=== PATIENT | female | born 1965 | race Caucasian/White ===

== ENCOUNTER 2017-07-11 10:49 | Day surgery (SDC) | payer OTHER, SELFPAY ==
[2017-07-07 14:17] VITALS: BMI 108.3
[2017-07-11] VITALS (11 sets, daily range): BP systolic 102–143; BP diastolic 55–87; PULSE 63–84; RESP 14–20; TEMP 36.5–36.7; O2SAT 91–98
--- NOTE | 2017-07-11 13:01 | HMH.PROC ---
[facility] Procedure Note Procedure Note:: Colonoscopy Procedure Report: Colonoscopy with cold snare polypectomy Endoscopist: Fan Pantoja II, MD Referring physician: Enrrique Montano MD Date of Procedure: July 11, 2017 Equipment: Olympus 180 variable stiffness pediatric colonoscope Sedation: Fentanyl 150 mg IV/ Versed 9 mg IV Indication: Mrs. Munoz is a 51-year-old female who is here for follow-up screening/surveillance colonoscopy. Her last colonoscopy was 7 years ago at which time 8 colon polyps were removed. Prior to this, she had a colonoscopy at which time 7 polyps were removed. She does have some lower abdominal discomfort radiating from right to left across the lower abdomen. She reports no rectal bleeding or change in bowel habits. She does state that her maternal grandmother and maternal uncle had colon cancer. Procedure: Prior to the procedure, a history and physical exam was performed, and patient's medications and allergies were reviewed. The risks, benefits and alternatives of the sedation and procedure were discussed with the patient. All questions were answered and informed consent was obtained. The patient was brought to the procedure room. Patient identification and proposed procedure were verified by the physician and the nurse. The patient was placed in a left lateral decubitus position and the scope was passed under direct vision. Throughout the procedure, the patient's blood pressure, pulse, and oxygen saturations were monitored continuously. The colonoscopy was accomplished without difficulty. The patient tolerated the procedure well. Findings: On digital rectal examination there was normal rectal tone. There were no external hemorrhoids. The colonoscope was introduced through the anal canal to the rectum and advanced to the cecum. The ileocecal valve and appendiceal orifice were identified. The scope was advanced a short distance into the ileum which appeared grossly normal. The scope was then withdrawn into the colon. There were 8 colon polyps identified in the ascending ?2, transverse ?3, descending ?1 and sigmoid ?2. These ranged in size from 5-7 mm and were all removed via cold snare polypectomy. There were scattered diverticuli throughout the descending and sigmoid colon (LEFT colon). The rectum itself was normal. Upon retroflexion within the rectum there were grade 1 internal hemorrhoids. Impression: 1. Colonic polyps ?8 2. Left-sided diverticulosis 3. Grade 1 internal hemorrhoids Plan: I will follow up the polyp pathology and recommend repeat colonoscopy again in 3 years based upon the polyp histology and the patient's family history. I would encourage fiber supplementation on a long-term daily maintenance basis.
== END 2017-07-11 14:05 | disposition home or self-care (01) ==
LOC: OUTP 10:52
PROVIDERS: Family Provider Family Medicine; PCP Family Medicine; Visit Provider Internal Medicine Gastroenterology
PROC: 0DJD8ZZ Inspection of Lower Intestinal Tract, Via Natural or Artificial Opening Endoscopic (ICD-10-PCS; CPT 45378; principal; 2017-07-11 12:00)
DX: Z12.11 Encounter for screening for malignant neoplasm of colon (principal); Z86.010 Personal history of colon polyps; K63.5 Polyp of colon; K57.30 Diverticulosis of large intestine without perforation or abscess without bleeding; K64.0 First degree hemorrhoids
CPT/HCPCS: 45380; 99152; 99153

== ENCOUNTER → 2017-09-15 10:30 | Outpatient (CLI) | payer OTHER, SELFPAY ==
--- NOTE | 2017-09-15 10:50 | XR_ITS ---
XR chest 2V HISTORY: ITS.REASON: NICOTINE DEPENENCE ORDERING PHYSICIAN: Gerry Brunner MD PATIENT AGE: 51 years COMPARISON: 03/21/2017 FINDINGS: The cardiomediastinal silhouette and pulmonary vascularity are within normal limits. The lungs are clear without infiltrates, suspicious nodules, or pleural effusions. No acute bony abnormalities. IMPRESSION: Negative chest, no acute finding
[2017-09-15 11:09] LABS: Basophils % 0.3 % (0.1-2.0); Eosinophils # 0.1 K/mm3 (0.0-0.4); Eosinophils % 1.4 % (0.1-12.0); Hematocrit 45.3 % (37.0-47.0); Hemoglobin 14.1 g/dL (12.2-16.2); Lymphocytes # 1.6 K/mm3 (0.7-4.5); Lymphocytes % 18.5 K/mm3 (10-50); Mean Corpuscular HGB Conc 31.1 g/dL (31.8-35.4); Mean Corpuscular Hemoglobin 29.9 pg (27.0-31.2); Mean Corpuscular Volume 96.1 fl (81-99); Mean Platelet Volume 8.3 fl (7.4-10.4); Monocytes # 0.4 K/mm3 (0.1-1.0); Monocytes % 4.5 % (1.7-9.3); Neutrophils # 6.3 K/mm3 (1.8-7.8); Neutrophils % 75.3 % (37.0-80.0); Platelet Count 226 K/mm3 (142-424); Red Blood Count 4.71 M/mm3 (4.20-5.40); Red Cell Distribution Width 13.6 % (11.5-17.5); White Blood Count 8.4 K/mm3 (4.8-10.8)
[2017-09-15 11:42] LABS: Anion Gap 15.3 mEq/L (5-15); Blood Urea Nitrogen 15 mg/dL (7-18); Carbon Dioxide 25 mmol/L (21.0-32.0); Chloride 106 mmol/L (98-107); Estimated Glomerular Filt Rate 106 ml/min (>60); GFR (African American) 128 ML/MIN (>60); Glucose 108 mg/dL (74-106); Potassium 4.3 mmoL/L (3.5-5.1); Sodium 142 mmol/L (136-145)
== END ==
PROVIDERS: Visit Provider Orthopaedic Surgery
DX: Z01.818 Encounter for other preprocedural examination (principal); S52.502A Unspecified fracture of the lower end of left radius, initial encounter for closed fracture
CPT/HCPCS: 36415; 71046; 80048; 85025; 93005

== ENCOUNTER → 2017-10-04 09:58 | Outpatient (CLI) | payer OTHER, SELFPAY ==
--- NOTE | 2017-10-04 10:23 | XR_ITS ---
XR wrist LT min 3V HISTORY follow-up ORIF/fracture ITS.REASON: LEFT WRIST POST OP ORDERING PHYSICIAN: Gerry Brunner MD PATIENT AGE: 52 years COMPARISON: 09/19/2017 FINDINGS: Bone plate remains in place along the anterior aspect of the distal radius stabilizing the comminuted radial fracture which is in good alignment. Fracture margins are somewhat less distinct which may be due to early healing. There remains good alignment. There is one small fragment along the posterior distal aspect of the fracture displaced dorsally x 2 mm. IMPRESSION: Healing distal radial fracture status post ORIF
== END ==
PROVIDERS: PCP Family Medicine; Visit Provider Orthopaedic Surgery
DX: S52.102A Unspecified fracture of upper end of left radius, initial encounter for closed fracture (principal)
CPT/HCPCS: 73110

== ENCOUNTER → 2017-10-21 10:09 | Outpatient (CLI) | payer OTHER, SELFPAY ==
--- NOTE | 2017-10-21 10:11 | XR_ITS ---
XR wrist LT min 3V HISTORY follow-up fracture/ORIF ITS.REASON: S/P LEFT WRIST ORIF ORDERING PHYSICIAN: Gerry Brunner MD PATIENT AGE: 52 years Comparison: 10/04/2017 FINDINGS: Volar bone plate remains in place stabilizing comminuted distal radial fracture with intra-articular component. Fracture line is still visible and does not appear significantly changed. No significant displacement. Mild anterior angulation of the distal fracture fragment. Splint remains in place IMPRESSION: Overall no change status post ORIF distal radial fracture with good alignment
== END ==
PROVIDERS: PCP Family Medicine; Visit Provider Orthopaedic Surgery
DX: S62.102A Fracture of unspecified carpal bone, left wrist, initial encounter for closed fracture (principal)
CPT/HCPCS: 73110

== ENCOUNTER → 2017-10-27 13:25 | Outpatient (CLI) | payer OTHER, SELFPAY ==
--- NOTE | 2017-10-27 13:26 | XR_ITS ---
XR wrist LT min 3V HISTORY follow-up fracture ITS.REASON: S/P LEFT WRIST ORIF ORDERING PHYSICIAN: Gerry Brunner MD PATIENT AGE: 52 years Comparison: 6 05/30/2012 FINDINGS: Volar bone plate remains in place stabilizing comminuted distal radial fracture with intra-articular component. Fracture line is still visible and does not appear significantly changed. No significant displacement. Mild anterior angulation of the distal fracture fragment. Splint remains in place. There is mild prominence of the scapholunate joint space which may indicate ligamentous injury. IMPRESSION: Overall no change status post ORIF distal radial fracture with good alignment Possible scapholunate ligamentous injury
== END ==
PROVIDERS: PCP Family Medicine; Visit Provider Orthopaedic Surgery
DX: S52.502A Unspecified fracture of the lower end of left radius, initial encounter for closed fracture (principal)
CPT/HCPCS: 73110

== ENCOUNTER → 2017-11-03 13:52 | Outpatient (CLI) | payer OTHER, SELFPAY ==
--- NOTE | 2017-11-03 13:55 | XR_ITS ---
XR wrist LT min 3V HISTORY follow-up fracture ITS.REASON: follow up/ patient heard pop ORDERING PHYSICIAN: Gerry Brunner MD PATIENT AGE: 52 years Comparison: 10/27/2017 FINDINGS: Bohler bone plate remains in place stabilizing comminuted distal radial fracture with intra-articular extension overall not significant changed. There remains good alignment of the fracture fragments. IMPRESSION: Overall no change good alignment status post ORIF comminuted nondisplaced distal radial fracture
== END ==
PROVIDERS: PCP Family Medicine; Visit Provider Orthopaedic Surgery
DX: S52.502A Unspecified fracture of the lower end of left radius, initial encounter for closed fracture (principal)
CPT/HCPCS: 73110

== ENCOUNTER → 2017-11-16 12:52 | Outpatient (CLI) | payer OTHER, SELFPAY ==
--- NOTE | 2017-11-16 13:00 | XR_ITS ---
XR wrist LT min 3V HISTORY follow-up fracture ITS.REASON: S/P LEFT WRIST ORIF ORDERING PHYSICIAN: Gerry Brunner MD PATIENT AGE: 52 years Comparison: 11/03/2017 FINDINGS: Status post ORIF comminuted distal radial fracture. A volar bone plate remains in place with good alignment of the fracture fragments. IMPRESSION: Good alignment distal radial fracture status post ORIF unchanged
== END ==
PROVIDERS: PCP Family Medicine; Visit Provider Orthopaedic Surgery
DX: Z47.89 Encounter for other orthopedic aftercare (principal)
CPT/HCPCS: 73110

== ENCOUNTER → 2018-01-17 13:22 | Outpatient (CLI) | payer OTHER, SELFPAY ==
--- NOTE | 2018-01-17 13:25 | XR_ITS ---
XR wrist LT min 3V HISTORY follow-up fracture/ORIF ITS.REASON: S/P LEFT WRIST ORIF ORDERING PHYSICIAN: Gerry Brunner MD PATIENT AGE: 52 years Comparison: 11/16/2017 FINDINGS: Status post ORIF with anterior bone plate along the distal radius stabilizing distal radial fracture with fracture line appears somewhat less apparent compared to the previous exam consistent with healing. There is good alignment. There is generalized osteopenia of the wrist. IMPRESSION: Status post ORIF distal radius with healing fracture
== END ==
PROVIDERS: PCP Family Medicine; Visit Provider Orthopaedic Surgery
DX: Z98.890 Other specified postprocedural states (principal); S62.102A Fracture of unspecified carpal bone, left wrist, initial encounter for closed fracture
CPT/HCPCS: 73110

== ENCOUNTER → 2019-02-08 16:03 | Outpatient (CLI) | payer OTHER, SELFPAY ==
--- NOTE | 2019-02-08 16:07 | MM_ITS ---
PROCEDURE: MM DIG SCREENING MAMM BI W/CAD CLINICAL INDICATION: SCREENING There is a history of breast cancer in patient's maternal aunt and maternal grandmother COMPARISON: DMDBAV DIG MAMM-DX JASON W ADD VIEWS from 07/23/2014 DMSB DIG MAMM-SCREEN JASON from 10/02/2015 DMSB DIG MAMM-SCREEN JASON W/CAD from 12/02/2016 TECHNIQUE: Standard CC and MLO images were obtained. R2 CAD reviewed. FINDINGS: Moderate diffuse scattered fibroglandular densities are seen in both breasts there is a stable small benign-appearing nodular density adjacent to the nipple left breast. There is no new or suspicious lesion in either breast and no suspicious microcalcifications. IMPRESSION: Fibrofatty parenchyma with no suspicious lesions seen BI-RAD Category: 2 Benign Finding(s) FOLLOW-UP: 1YR 1 Year Follow-up (A letter has been sent to the patient regarding results of the study.) Dictated by: Dr. Ramsey Davenport MD 02/09/2019 10:[address] Ramsey Davenport MD in [place] 02/09/2019 10:57
== END ==
PROVIDERS: PCP Family Medicine; Visit Provider Family Medicine
DX: Z12.31 Encounter for screening mammogram for malignant neoplasm of breast (principal)
CPT/HCPCS: 77067

== ENCOUNTER → 2019-04-17 09:40 | Outpatient (CLI) | payer OTHER, SELFPAY ==
--- NOTE | 2019-04-17 09:41 | US_ITS ---
PROCEDURE: US THYROID CLINICAL INDICATION: hypothy Difficulty swallowing feels like something stuck in throat COMPARISON: No exams were available for comparison FINDINGS: Right lobe: 5 x 1.3 x 1.8 cm 6 x 5 mm isoechoic nodule mid polar region. Well-circumscribed solid-appearing. 1.4 by 1.4 x 1 cm mixed cystic and solid nodule lower pole well-circumscribed wider than tall without obvious calcification. T rads level 2 not suspicious. Left lobe: Prior left-sided lobectomy Isthmus: Additional findings: Unremarkable IMPRESSION: Prior left thyroidectomy. 14 mm lower pole nodule on right T rads level 2. Suggest 6 month follow-up to confirm stability Dictated by: Bao Daniel MD 04/17/2019 19:41 Electronically signed by Bao Daniel MD in [place] 04/17/2019 19:41
--- NOTE | 2019-04-17 09:41 | FL_ITS ---
PROCEDURE: FL BARIUM SWALLOW CLINICAL INDICATION: dysphagia Thyroid nodule COMPARISON: US THYROID from 04/17/2019 TECHNIQUE: In the upright position the patient was observed to swallow barium in both the AP and lateral view. The cervical esophagus was examined under fluoroscopy with images obtained. The patient was then placed prone in the right anterior oblique position and was observed to swallow barium with Valsalva technique . FLUOROSCOPY TIME: 44 seconds FINDINGS: There was no evidence of aspiration. There was normal peristalsis. No filling defects or mucosal abnormalities. No masses or strictures. There is no evidence displacement the esophagus. No external compression evident. No evidence of hiatal hernia. Normal peristalsis IMPRESSION: Negative barium swallow. Dictated by: Bao Daniel MD 04/17/2019 16:06 Electronically signed by Bao Daniel MD in [place] 04/17/2019 16:06
== END ==
PROVIDERS: PCP Family Medicine; Visit Provider Otolaryngology
DX: R13.10 Dysphagia, unspecified (principal); Z90.09 Acquired absence of other part of head and neck
CPT/HCPCS: 74220; 76536

== ENCOUNTER → 2019-04-23 13:29 | Outpatient (CLI) | payer OTHER, SELFPAY ==
[2019-04-23 14:48] LABS: Free T4 (Free Thyroxine) 0.84 ng/dl (0.76-1.46); Thyroid Stimulating Hormone 3.55 uIU/ml (0.358-3.740)
== END ==
PROVIDERS: PCP Family Medicine; Visit Provider Otolaryngology
DX: R13.10 Dysphagia, unspecified (principal); Z90.09 Acquired absence of other part of head and neck
CPT/HCPCS: 36415; 84439; 84443

== ENCOUNTER → 2019-10-30 13:22 | Outpatient (CLI) | payer OTHER, SELFPAY ==
--- NOTE | 2019-10-30 13:23 | US_ITS ---
PROCEDURE: US THYROID CLINICAL INDICATION: thyroid Post left thyroid lobectomy, follow-up right lobe nodules COMPARISON: US THYROID from 04/17/2019 FINDINGS: Right lobe: The right lobe measures 1.6 x 4.6 x 2.2 cm. There is an isoechoic nodule upper pole measuring 0.6 x 0.3 by 0.7 cm with a tiny cystic component representing the only change from the previous study. Again noted is a complex cystic and solid nodule lower pole measuring 1.7 x 1 point by 1.6 cm wider than tall and showing no definite calcifications. This is basically stable and remains a Ti- rads 2 Left lobe: Surgically removed Isthmus: Unremarkable Additional findings: IMPRESSION: Basically stable small isoechoic nodule superior pole and stable complex cystic and solid nodule lower pole Ti-rads 2 Dictated by: Dr. Ramsey Davenport MD 10/30/2019 14:[address] Ramsey Davenport MD in [place] 10/30/2019 14:09
== END ==
PROVIDERS: PCP Family Medicine; Visit Provider Otolaryngology
DX: E03.9 Hypothyroidism, unspecified (principal); E04.1 Nontoxic single thyroid nodule
CPT/HCPCS: 76536

== ENCOUNTER → 2019-10-30 13:53 | Outpatient (CLI) | payer OTHER, SELFPAY ==
[2019-10-30 16:02] LABS: Free T4 (Free Thyroxine) 1.01 ng/dl (0.78-2.19)
[2019-10-30 16:18] LABS: Thyroid Stimulating Hormone 2.79 uIU/mL (0.465-4.68)
== END ==
PROVIDERS: Visit Provider Otolaryngology
DX: E03.9 Hypothyroidism, unspecified (principal); E04.1 Nontoxic single thyroid nodule
CPT/HCPCS: 36415; 84439; 84443

== ENCOUNTER → 2019-11-20 10:57 | Outpatient (CLI) | payer OTHER, SELFPAY ==
--- NOTE | 2019-11-20 10:59 | CT_ITS ---
PROCEDURE: CT SINUS WO CON CLINICAL HISTORY: sinusitis COMPARISON: No exams were available for comparison TECHNIQUE: Axial images obtained with sagittal and coronal reformats. All CT scans at the facility use one or more dose reduction, viz: automated exposure control, ma/kV adjustment per patient size (including targeted exams where dose is matched to indication, i.e. head), or iterative reconstruction technique. FINDINGS: The frontal and sphenoid sinuses have an unremarkable appearance. There is some minimal mucosal thickening along the inferior wall of left maxillary sinus. No sinus air-fluid levels are evident. There is minimal rightward nasal septal deviation. The ostiomeatal units are patent. Minimal mucosal thickening noted of the ethmoid sinuses on the left. The TMJs have an unremarkable appearance. No mastoid effusion. Unremarkable appearing orbits IMPRESSION: Minimal mucosal thickening of the ethmoid sinuses and left maxillary sinus with minimal rightward nasal septal deviation otherwise negative Dictated by: Bao Daniel MD 11/22/2019 09:16 Electronically signed by Bao Daniel MD in [place] 11/22/2019 09:16
== END ==
PROVIDERS: PCP Family Medicine; Visit Provider Otolaryngology
DX: J30.9 Allergic rhinitis, unspecified (principal)
CPT/HCPCS: 70486

== ENCOUNTER → 2020-02-07 10:02 | Outpatient (CLI) | payer OTHER, SELFPAY ==
--- NOTE | 2020-02-07 10:05 | MR_ITS ---
PROCEDURE: MR HEAD/BRAIN WO/W CON CLINICAL INDICATION: FREQUENT FALLS PT. C/O HX OF FREQUENT FALLS FOR THE PAST 2 YEARS. PT ALSO C/O H/A OVER RT EYE AND BACK OR NECK. COMPARISON: No exams were available for comparison TECHNIQUE: Routine multiplanar multi echo sequences are performed without and with gadolinium enhancement. FINDINGS: No midline shift, mass effect, intracranial hemorrhage, or hydrocephalus is evident. No evidence of acute infarction. The cerebellopontine angle, cerebellum, and brainstem have an unremarkable appearance. No enhancing lesions. There are only a few periventricular subcortical T2 white matter hyperintensities which are nonspecific. The pituitary, optic chiasm, corpus callosum, and craniocervical junction have an unremarkable appearance. No mastoid effusion or sinus air-fluid level IMPRESSION: No acute intracranial findings. There are sparse T2 white matter hyperintensities which are nonspecific and may be related to small ischemic gliotic foci. Dictated by: Bao Daniel MD 02/08/2020 13:05 Bao Daniel MD in [place] 02/08/2020 13:05
== END ==
PROVIDERS: PCP Family Medicine; Visit Provider Nurse Practitioner
DX: R29.6 Repeated falls (principal)
CPT/HCPCS: 70553; A9576

== ENCOUNTER → 2020-02-26 10:49 | Outpatient (CLI) | payer OTHER, SELFPAY ==
--- NOTE | 2020-02-26 10:52 | US_ITS ---
PROCEDURE: US THYROID CLINICAL INDICATION: NON TOXIC SINGLE THY NODULE Follow-up thyroid nodule COMPARISON: US US THYROID from 04/17/2019 US US THYROID from 10/30/2019 FINDINGS: The right lobe is 4.4 x 2.2 x 1.5 cm. There has been a prior left thyroidectomy. There is a 6 by 4 mm nodule in the upper pole which has components that are isoechoic and hypoechoic unchanged. A cyst is present in the upper pole at 3 mm. In the lower pole there is a complex nodule which measures 1.7 x 1.1 cm having both cystic and solid components not significantly changed. IMPRESSION: No change in the dominant right-sided thyroid nodule with other smaller nodules also noted unchanged. Prior left thyroidectomy. Dictated by: Bao Daniel MD 02/26/2020 14:46 Bao Daniel MD in [place] 02/26/2020 14:46
[2020-02-26 11:20] LABS: MANUAL DIFFERENTIAL MANUAL DIFFERENTIAL (MANUAL DIFF)
[2020-02-26 11:33] LABS: Basophils % 0.6 % (0.1-2.0); Eosinophils # 0.1 K/mm3 (0.0-0.4); Hematocrit 47.1 % (37.0-47.0); Hemoglobin 14.5 g/dL (12.2-16.2); Lymphocytes # 1.8 K/mm3 (0.7-4.5); Lymphocytes % 29.8 % (10-50); Mean Corpuscular HGB Conc 30.9 g/dL (31.8-35.4); Mean Corpuscular Hemoglobin 29.9 pg (27.0-31.2); Mean Corpuscular Volume 96.8 fl (81-99); Mean Platelet Volume 7.7 fl (7.4-10.4); Monocytes # 0.4 K/mm3 (0.1-1.0); Monocytes % 6.6 % (1.7-9.3); Neutrophils # 3.6 K/mm3 (1.8-7.8); Neutrophils % 60.9 % (37.0-80.0); Platelet Count 258 K/mm3 (142-424); Red Blood Count 4.87 M/mm3 (4.20-5.40); Red Cell Distribution Width 13.2 % (11.5-17.5)
[2020-02-26 13:29] LABS: Eosinophils % 3 % (0-3); Lymphocytes % 28 % (10-50); Monocytes % 5 % (2-9); Neutrophils % 64 % (42-76); Platelet Estimate Normal; RBC Morphology Normal; Total Cells Counted 100
[2020-02-26 13:41] LABS: Thyroid Stimulating Hormone 3.21 uIU/mL (0.465-4.68)
== END ==
PROVIDERS: PCP Family Medicine; Visit Provider Otolaryngology
DX: E04.1 Nontoxic single thyroid nodule (principal)
CPT/HCPCS: 36415; 76536; 84439; 84443; 85007; 85014; 85018; 85048; 85049

== ENCOUNTER → 2020-02-26 11:18 | Outpatient (CLI) | payer OTHER, SELFPAY | PROVIDERS: Visit Provider Otolaryngology | DX: E04.1 Nontoxic single thyroid nodule (principal) | CPT/HCPCS: 36415; 84439; 84443; 85007; 85014; 85018; 85048; 85049 ==

== ENCOUNTER → 2020-03-19 12:25 | Outpatient (CLI) | payer OTHER, SELFPAY ==
[2020-03-19 14:19] LABS: Basophils % 0.6 % (0.1-2.0); Eosinophils # 0.1 K/mm3 (0.0-0.4); Eosinophils % 2.1 % (0.1-12.0); Hematocrit 44.6 % (37.0-47.0); Hemoglobin 14.4 g/dL (12.2-16.2); Lymphocytes # 1.9 K/mm3 (0.7-4.5); Lymphocytes % 31.7 % (10-50); Mean Corpuscular HGB Conc 32.2 g/dL (31.8-35.4); Mean Corpuscular Hemoglobin 30.5 pg (27.0-31.2); Mean Corpuscular Volume 94.5 fl (81-99); Mean Platelet Volume 8.3 fl (7.4-10.4); Monocytes # 0.3 K/mm3 (0.1-1.0); Monocytes % 4.5 % (1.7-9.3); Neutrophils # 3.6 K/mm3 (1.8-7.8); Neutrophils % 61.1 % (37.0-80.0); Platelet Count 243 K/mm3 (142-424); Red Blood Count 4.72 M/mm3 (4.20-5.40); Red Cell Distribution Width 13.9 % (11.5-17.5); White Blood Count 5.9 K/mm3 (4.8-10.8)
[2020-03-19 15:14] LABS: Strep Scrn Group A (Rapid) Negative (Negative)
[2020-03-19 19:44] LABS: Covid-19 Nasal PCR Sendout Lex NOT DETECTED
== END ==
PROVIDERS: PCP Nurse Practitioner; Visit Provider Nurse Practitioner
DX: Z03.818 Encounter for observation for suspected exposure to other biological agents ruled out (principal)
CPT/HCPCS: 36415; 85025; 87430; U0004

== ENCOUNTER → 2020-04-14 15:58 | Outpatient (CLI) | payer OTHER, SELFPAY ==
--- NOTE | 2020-04-14 16:01 | MM_ITS ---
PROCEDURE: MM DIG SCREENING MAMM BI W/CAD Digital Breast Tomosynthesis Included CLINICAL INDICATION: SCREENING Breast cancer patient's maternal aunt and maternal grandmother. There has been a previous biopsy left breast for benign disease. COMPARISON: MG DMSB DIG MAMM-SCREEN JASON from 10/02/2015 MG DMSB DIG MAMM-SCREEN JASON W/CAD from 12/02/2016 MG MM DIG SCREENING MAMM BI W/CAD from 02/08/2019 TECHNIQUE: Standard CC and MLO images and 3D Tomosynthesis was obtained. R2 CAD reviewed. FINDINGS: Moderate scattered fibroglandular densities are seen throughout both breasts. The findings are fairly symmetrical bilaterally. There are a couple of benign-appearing microcalcifications left breast. There is a stable benign-appearing nodular density adjacent to the nipple left breast. There is no suspicious lesion and no suspicious microcalcifications. IMPRESSION: Moderate breast density with no suspicious lesions seen BI-RAD Category: 2 Benign Finding(s) FOLLOW-UP: 1YR 1 Year Follow-up (A letter has been sent to the patient regarding results of the study.) Dictated by: Dr. Ramsey Davenport MD 04/18/2020 14:34 Dr. Ramsey Davenport MD in [place] 04/18/2020 14:34
== END ==
PROVIDERS: PCP Family Medicine; Visit Provider Family Medicine
DX: Z12.31 Encounter for screening mammogram for malignant neoplasm of breast (principal)
CPT/HCPCS: 77063; 77067

== ENCOUNTER → 2020-07-23 16:27 | Outpatient (CLI) | payer OTHER, SELFPAY ==
--- NOTE | 2020-07-23 16:36 | XR_ITS ---
PROCEDURE: XR HAND RT MIN 3V CLINICAL INDICATION: right hand pain COMPARISON: No exams were available for comparison FINDINGS: No fracture or dislocation. No lytic or blastic change. There is normal mineralization. The joint spaces are well-preserved. No significant degenerative/arthritic changes. No erosive changes evident. Other findings:None. IMPRESSION: No acute findings. Dictated by: Bao Daniel MD 07/23/2020 16:45 Bao Daniel MD in [place] 07/23/2020 16:45
== END ==
PROVIDERS: PCP Family Medicine; Visit Provider Family Medicine
DX: M79.641 Pain in right hand (principal)
CPT/HCPCS: 73130

== ENCOUNTER 2020-08-12 15:10 | Outpatient (RCR) | payer OTHER, SELFPAY | END 2020-08-12 16:00 | disposition home or self-care (01) | LOC: OT 15:10 | PROVIDERS: Visit Provider Orthopaedic Surgery | DX: G56.01 Carpal tunnel syndrome, right upper limb (principal) | CPT/HCPCS: 97763 ==

== ENCOUNTER → 2020-09-08 13:40 | Outpatient (CLI) | payer OTHER, SELFPAY ==
--- NOTE | 2020-09-08 13:40 | US_ITS ---
PROCEDURE: US THYROID CLINICAL INDICATION: hx goiter COMPARISON: US US THYROID from 02/26/2020 FINDINGS: Right lobe: 5 x 1.8 x 1.9 cm. Multiple nodules are present including isoechoic nodule in the upper pole at 8 mm, 4 mm cyst in the mid polar region, complex cystic and solid nodule in the lower pole 18 mm overall not significantly changed. Left lobe: Prior left thyroidectomy Isthmus: Additional findings: IMPRESSION: No change right-sided thyroid nodules Dictated by: Bao Daniel MD 09/08/2020 18:53 Bao Daniel MD in [place] 09/08/2020 18:53
[2020-09-08 15:23] LABS: Free T4 (Free Thyroxine) 1.13 ng/dl (0.78-2.19)
== END ==
PROVIDERS: PCP Family Medicine; Visit Provider Otolaryngology
DX: E01.0 Iodine-deficiency related diffuse (endemic) goiter (principal); E04.9 Nontoxic goiter, unspecified
CPT/HCPCS: 36415; 76536; 84439; 84443

== ENCOUNTER → 2020-12-02 10:41 | Outpatient (CLI) | payer OTHER, SELFPAY ==
--- NOTE | 2020-12-02 11:02 | XR_ITS ---
PROCEDURE: XR CHEST 2V CLINICAL HISTORY: surgery 12/04/20; smoker COMPARISON: CR CXR CHEST(2 VIEWS-NOT PORTABLE) from 07/19/2015 CR CXR CHEST(2 VIEWS-NOT PORTABLE) from 03/21/2017 CR CXR2V XR chest 2V from 09/15/2017 FINDINGS: The cardiomediastinal silhouette and pulmonary vascularity are within normal limits. The lungs are clear without infiltrates, suspicious nodules, or pleural effusions. Calcified granuloma left lower lobe. No acute bony findings. IMPRESSION: No acute findings. Dictated by: Bao Daniel MD 12/02/2020 11:15 Bao Daniel MD in [place] 12/02/2020 11:15
--- NOTE | 2020-12-02 11:20 | ECG_ITS ---
APPROVED REPORT Exam: Resting ECG HR:72 bpm ECG Measurements Heart Rate 72 AXES HI 140 P 74 QRSd 72 QRS 67 QT 394 T 69 QTc 431 Conclusion Normal sinus rhythm Low voltage QRS Borderline ECG Electronically signed by : Shaheed Restrepo, 12/03/2020 21:38:10
[2020-12-02 11:34] LABS: Chloride 108 mmol/L (98-107); Potassium 4.8 mmoL/L (3.5-5.1); Sodium 141 mmol/L (136-145)
[2020-12-02 11:36] LABS: Basophils # 0.1 K/mm3 (0-0.2); Basophils % 0.9 % (0.1-2.0); Eosinophils # 0.1 K/mm3 (0.0-0.4); Eosinophils % 2.3 % (0.1-12.0); Hematocrit 43.5 % (37.0-47.0); Hemoglobin 14.1 g/dL (12.2-16.2); Lymphocytes # 1.8 K/mm3 (0.7-4.5); Lymphocytes % 28.2 % (10-50); Mean Corpuscular HGB Conc 32.5 g/dL (31.8-35.4); Mean Corpuscular Hemoglobin 30.1 pg (27.0-31.2); Mean Corpuscular Volume 92.7 fl (81-99); Mean Platelet Volume 8.5 fl (7.4-10.4); Monocytes # 0.3 K/mm3 (0.1-1.0); Monocytes % 4.3 % (1.7-9.3); Neutrophils % 64.3 % (37.0-80.0); Platelet Count 237 K/mm3 (142-424); Red Blood Count 4.69 M/mm3 (4.20-5.40); Red Cell Distribution Width 13.7 % (11.5-17.5); White Blood Count 6.2 K/mm3 (4.8-10.8)
[2020-12-02 11:37] LABS: Alanine Aminotransferase 14 U/L (12-78); Albumin/Globulin Ratio 1.6 (1.1-1.8); Alkaline Phosphatase 69 U/L (38-126); Anion Gap 9.8 mEq/L (5-15); Aspartate Amino Transferase 22 U/L (14-36); Bilirubin,Total 0.5 mg/dl (0.2-1.3); Blood Urea Nitrogen 12 mg/dl (7-17); Carbon Dioxide 28 mmol/L (22.0-30.0); Estimated Glomerular Filt Rate 87 ml/min (>60); GFR (African American) 106 ML/MIN (>60); Globulin 2.5 g/dL (1.3-3.2); Total Protein,Serum 6.5 g/dl (6.3-8.2)
[2020-12-02 11:38] LABS: Calcium 8.7 mg/dl (8.4-10.2); Glucose 95 mg/dl (74-100)
== END ==
PROVIDERS: Visit Provider Orthopaedic Surgery
DX: Z01.818 Encounter for other preprocedural examination (principal); Z11.52 Encounter for screening for COVID-19; M65.331 Trigger finger, right middle finger
CPT/HCPCS: 36415; 71046; 80053; 85025; 93005; U0003

== ENCOUNTER 2020-12-04 11:20 | Day surgery (SDC) | payer OTHER, SELFPAY ==
[2020-12-02 13:23] VITALS: BMI 43.6
[2020-12-04 11:54] VITALS: BP 114/66; PULSE 75; RESP 18; TEMP 36.2; O2SAT 96
[2020-12-04 14:10] VITALS: BP 130/75; PULSE 78; RESP 16; TEMP 36.4; O2SAT 92
--- NOTE | 2020-12-04 14:14 | P.PN_ITS ---
[facility] Anesthesia Checklist - Structural Data Admitted From: Home Planned Operative Procedure/s: r 3rd trigger finger release Consent for Planned Operative Procedure(s) Verified: Yes - Additional verifications Anesthesia Reactions: No Hx Blood Transfusions: No Blood Transfusion Reaction: No - Airway Assessment C-Spine Mobility Assessed: Yes TMJ Mobility Assessed: Yes Dentition: Good Dentition - Neurological Assessment Level of Consciousness: Awake, Alert, Appropriate - Anesthesia Plan Anesthesia Risk discussed: Yes Anesthesia Plan: Verified ASA Class: II Anesthesia Type: MAC [facility] History I have reviewed the patient's past medical history: Yes Medical History: Reports:: Heart Murmur, Lung Disease Denies:: Cancer, Diabetes Mellitus Type 1, Diabetes Mellitus Type 2, Internal Pacemaker, MRSA, Seizures *Have you ever received a pneumonia vaccine?: No *Have you received a flu vaccine this season?: No Other Medical History: Denies: Blood Transfusion Reaction Anesthesia experience/problems:: none Laterality Cases: Left: Breast Biopsy, Other Other Surgeries: Yes: Colonoscopy, Hysterectomy-Total, Thyroidectomy, Tubal Lig ation, Other. No: Pacemaker Amputation: No Fractures: Yes (left wrist) - *Social History Last grade of school completed: Some college Smoking Status: Current every day smoker Tobacco Type: cigarettes # Packs/Day (cigarettes): 1 Alcohol Intake: never Alcohol Intake Frequency:: other Substance Use Type: denies use *Occupational Status:: employed Housing: house Household Members: significant other *Travel in the last 8 weeks: None Family Hx:: Cancer, Diabetes
[2020-12-04 14:25] VITALS: BP 132/69; PULSE 78; RESP 16; O2SAT 96
[2020-12-04 14:40] VITALS: BP 151/82; PULSE 65; RESP 16; O2SAT 96
--- NOTE | 2020-12-04 14:56 | HMH.OPNOTE ---
Date of procedure: 12/04/20 Pre-op Diagnosis:: Recurrent trigger finger, right middle finger Post-op Diagnosis:: Same Procedure performed:: Trigger finger release, left middle finger Surgeon:: Jamie Allen MD ARBORICULTURIST:: Iain Carrillo Anesthesia: MAC Estimated blood loss (mL): 1 Clinical Note:: Patient is a 55-year-old female with recurrent triggering of the right middle finger. She had symptoms for a long time and failed to respond satisfactorily to conservative management including local steroid injections. As the patient failed to respond adequately to conservative management and reports significant pain, disability and dysfunction with the hand, surgical release of the A1 sara is necessary to relieve the symptoms, improve function and decrease the pain and to prevent permanent stiffness and tendon damage. Please refer to my office note for full details. Operative findings:: The intraoperative findings showed a thickened and inflamed A1 sara of the middle finger. Also there is some synovitis of the flexor tendon sheath. The flexors tendons are thickened and somewhat degenerate but there is no complete tear. There is no evidence of any space-occupying lesions over the tendons or within the tendon sheath. Operative note:: On the day of the surgery the patient was met in the preoperative area. Patient was positively identified and the operative site was marked and initialed by me. A physical examination was performed and the chart was updated. I again discussed the procedure, risks and benefits and alternatives with the patient. The complications discussed include but are not limited to- infection, injury to nerves, tendons and blood vessels, incisional scar (cosmesis), scar tenderness/contracture, DVT/PE, finger stiffness, bowstringing of the tendons, CRPS (complex regional pain syndrome- pain, sensory and temperature changes, swelling and stiffness), painful scar, incomplete relief of pain, incomplete return of function, recurrence and likely need for further surgery in future and also the risks of anesthesia including heart attack, stroke, and even . I have discussed how there is a small but real possibility of loss of use of the arm, loss of the limb or loss of life itself. I have also explained how additional surgery may be required if there are any complications or recurrence. We have also discussed the postoperative recovery and rehabilitation required, the likely need for hand therapy, the possibility of stiffness, chronic pain and we've also discussed the option of nonsurgical treatment. Patient asked appropriate questions and all have been answered by me. Patient wished to proceed with the surgery. Consent form was reviewed and signed. Patient understood the risks, agreed to proceed with surgery, and no guarantees or assurances were given or implied. The patient was brought to the operating room and placed supine on the operating table. The right upper extremity was placed over a side table. All the bony prominences were well-padded. The patient had a MAC anesthesia administered by the lockstitch zipper setter. A well-padded tourniquet cuff was placed over the upper arm. The right upper extremity was prepped and draped in the usual sterile fashion. A preprocedure timeout was performed as per hospital policy. Administration of prophylactic antibiotics was confirmed with the lockstitch zipper setter. The skin incisions were marked for the middle finger trigger release just distal to the distal palmar crease. Local anesthesia was obtained with 8 cc of 1% lidocaine with epinephrine. The limb was exsanguinated with the Esmarch bandage and tourniquet was inflated to 250 mmHg. Please see nursing records for the total tourniquet time. Next, a transverse incision approximately 1.5 cm in length was made just distal to the distal palmar crease, in line with the middle finger. Dissection was carried down through the subcutaneous fat down to the level of the flexor tendon sheath
== END 2020-12-04 14:40 | disposition home or self-care (01) ==
LOC: OR 11:23
PROVIDERS: PCP Family Medicine; Visit Provider Orthopaedic Surgery
PROC: (CPT 26055; principal; 2020-12-04 13:00)
DX: M65.331 Trigger finger, right middle finger (principal)
CPT/HCPCS: 26055; 96374

== ENCOUNTER → 2021-04-01 10:32 | Outpatient (CLI) | payer OTHER, SELFPAY ==
--- NOTE | 2021-04-01 10:38 | XR_ITS ---
PROCEDURE: XR CHEST 2V CLINICAL HISTORY: CHEST PAIN, NON-CARDIAC COMPARISON: CR CXR CHEST(2 VIEWS-NOT PORTABLE) from 03/21/2017 CR CXR2V XR chest 2V from 09/15/2017 CR XR CHEST 2V from 12/02/2020 FINDINGS: The cardiomediastinal silhouette and pulmonary vascularity are within normal limits. The lungs are clear without infiltrates, suspicious nodules, or pleural effusions. No acute bony abnormalities. IMPRESSION: No change with no acute finding. Dictated by: Bao Daniel MD 04/01/2021 14:28 Bao Daniel MD in [place] 04/01/2021 14:28
[2021-04-01 11:30] LABS: Basophils # 0.1 K/mm3 (0-0.2); Basophils % 0.8 % (0.1-2.0); Eosinophils # 0.1 K/mm3 (0.0-0.4); Hematocrit 44.3 % (37.0-47.0); Hemoglobin 14.3 g/dL (12.2-16.2); Lymphocytes % 27.9 % (10-50); Mean Corpuscular HGB Conc 32.2 g/dL (31.8-35.4); Mean Corpuscular Hemoglobin 30.9 pg (27.0-31.2); Mean Corpuscular Volume 96.1 fl (81-99); Mean Platelet Volume 8.7 fl (7.4-10.4); Monocytes # 0.3 K/mm3 (0.1-1.0); Monocytes % 4.1 % (1.7-9.3); Neutrophils # 4.5 K/mm3 (1.8-7.8); Neutrophils % 65.1 % (37.0-80.0); Platelet Count 266 K/mm3 (142-424); Red Blood Count 4.61 M/mm3 (4.20-5.40); Red Cell Distribution Width 13.6 % (11.5-17.5)
== END ==
PROVIDERS: PCP Family Medicine; Visit Provider Nurse Practitioner Family
DX: R07.89 Other chest pain (principal); R05.9 Cough, unspecified
CPT/HCPCS: 36415; 71046; 85025

== ENCOUNTER → 2021-04-29 13:23 | Outpatient (CLI) | payer OTHER, SELFPAY ==
--- NOTE | 2021-04-29 13:25 | MM_ITS ---
PROCEDURE INFORMATION: Exam: MG Bilateral Screening 3D Mammography Exam date and time: 04/29/2021 1:25 PM Age: 55 years old Clinical indication: Screening mammogram TECHNIQUE: Imaging protocol: Bilateral screening tomosynthesis and 2D mammography including computer-aided detection (CAD) when performed. COMPARISON: 1. MG MM DIG SCREENING MAMM BI W/CAD 04/14/2020 4:01 PM 2. MG MM DIG SCREENING MAMM BI W/CAD 02/08/2019 4:18 PM 3. MG DMSB DIG MAMM-SCREEN JASON W/CAD 12/02/2016 4:06 PM 4. MG DMSB DIG MAMM-SCREEN JASON 10/02/2015 3:09 PM FINDINGS: MAMMOGRAPHY: Breast composition: There are scattered areas of fibroglandular density. Mass: Stable benign-appearing subcentimeter nodules are present in the left breast. No new or morphologically suspicious nodule has developed to suggest malignancy. Architectural distortion: No new or suspicious architectural distortion. Calcifications: No new or suspicious calcifications are present Asymmetric density: No new or suspicious asymmetric density is present Skin thickening: None. Axillary adenopathy: None. IMPRESSION: No mammographic evidence of malignancy. Recommend annual screening mammography unless otherwise clinically indicated. ASSESSMENT: BI-RADS category 2: Benign
== END ==
PROVIDERS: PCP Family Medicine; Visit Provider Family Medicine
DX: Z12.31 Encounter for screening mammogram for malignant neoplasm of breast (principal)
CPT/HCPCS: 77063; 77067

== ENCOUNTER → 2021-08-13 15:03 | Outpatient (CLI) | payer OTHER, SELFPAY ==
--- NOTE | 2021-08-13 15:07 | XR_ITS ---
FINAL REPORT CLINICAL HISTORY: COVID TESTING, COUGH COMPARISON: April 01, 2021 FINDINGS: The heart size is normal. The mediastinum is normal. There are mild chronic changes in the lung bases. There are no pleural effusions. There is no pneumothorax. There is no osseous abnormality. IMPRESSION: No acute cardiopulmonary process Reviewed, Interpreted and Dictated by Hakan Burns MD Transcribed by Christiano Chowdary Authenticated by Hakan Burns MD on 08/13/2021 03:58:36 PM [facility]
[2021-08-13 15:26] LABS: Adenovirus,PCR Not Detected (NotDetected); Bordetella Pertussis Not Detected (NotDetected); Chlamydophila Pneumoniae, PCR Not Detected (NotDetected); Coronavirus 19, PCR Not Detected (NotDetected); Coronavirus NL63 Not Detected (NotDetected); Coronavirus OC43 Not Detected (NotDetected); Coronovirus HKU1,PCR Not Detected (NotDetected); Human Metapneumovirus Not Detected (NotDetected); Influenza A, PCR Not Detected (NotDetected); Influenza AH1, 2009 Not Detected (NotDetected); Influenza AH1, PCR Not Detected (NotDetected); Influenza AH3,PCR Not Detected (NotDetected); Influenza B, PCR Not Detected (NotDetected); Mycoplasma Pneumoniae, PCR Not Detected (NotDetected); Parainfluenza 1, PCR Not Detected (NotDetected); Parainfluenza 2, PCR Not Detected (NotDetected); Parainfluenza 3, PCR Not Detected (NotDetected); Parainfluenza 4, PCR Not Detected (NotDetected); Respiratory Syncytial Virus Not Detected (NotDetected); Rhinovirus/Enterovirus Not Detected (NotDetected)
[2021-08-13 15:31] LABS: Basophils % 0.9 % (0.1-2.0); Eosinophils # 0.1 K/mm3 (0.0-0.4); Eosinophils % 2.1 % (0.1-12.0); Hematocrit 45.6 % (37.0-47.0); Hemoglobin 14.4 g/dL (12.2-16.2); Lymphocytes # 0.9 K/mm3 (0.7-4.5); Lymphocytes % 18.7 % (10-50); Mean Corpuscular HGB Conc 31.5 g/dL (31.8-35.4); Mean Corpuscular Hemoglobin 30.7 pg (27.0-31.2); Mean Corpuscular Volume 97.2 fl (81-99); Mean Platelet Volume 8.5 fl (7.4-10.4); Monocytes # 0.3 K/mm3 (0.1-1.0); Monocytes % 5.8 % (1.7-9.3); Neutrophils # 3.3 K/mm3 (1.8-7.8); Neutrophils % 72.4 % (37.0-80.0); Platelet Count 218 K/mm3 (142-424); Red Blood Count 4.69 M/mm3 (4.20-5.40); Red Cell Distribution Width 13.8 % (11.5-17.5); White Blood Count 4.6 K/mm3 (4.8-10.8)
[2021-08-13 16:10] LABS: Strep Scrn Group A (Rapid) Negative (Negative)
[2021-08-13 16:56] LABS: Coronavirus 229E Detected (NotDetected)
== END ==
PROVIDERS: PCP Family Medicine; Visit Provider Nurse Practitioner
DX: U07.1 COVID-19 (principal); J02.9 Acute pharyngitis, unspecified
CPT/HCPCS: 36415; 71045; 85025; 87430; 87581; 87632; 87798; C9803; U0003; U0005

== ENCOUNTER → 2021-10-08 10:55 | Outpatient (CLI) | payer OTHER, SELFPAY ==
--- NOTE | 2021-10-08 10:55 | US_ITS ---
FINAL REPORT TECHNIQUE: Ultrasound images of the thyroid were obtained. CLINICAL HISTORY: thyroid nodule COMPARISON: 10/30/2019 FINDINGS: The left lobe of the thyroid has been removed. The right lobe of the thyroid measures 4.6 x 2.2 x 2.1 cm. It is normal in echogenicity. Within the upper pole of the right lobe is an 8 x 4 x 8 cm, solid, isoechoic nodule previously measuring 8 x 4 x 5 cm, not significantly changed from prior exam. TI-RADS category 3. In the mid right lobe is a 5 mm cystic nodule, stable. TI-RADS category 1. In the lower pole is a cystic and solid, isoechoic nodule measuring 2.1 x 2.0 x 1.4 cm, previously measuring 1.9 x 1.3 x 1.8 cm, not significantly changed. TI-RADS category 2. IMPRESSION: Stable thyroid nodules as above. No new mass or nodule identified. Recommend 1 year follow-up. Reviewed, Interpreted and Dictated by Jose Kohli III, MD Transcribed by Beth Amezcua Authenticated by Jose Kohli III, MD on 10/08/2021 02:42:48 PM [facility]
[2021-10-08 12:43] LABS: Free T4 (Free Thyroxine) 0.89 ng/dl (0.78-2.19)
[2021-10-08 12:58] LABS: Thyroid Stimulating Hormone 3.22 uIU/mL (0.465-4.68)
== END ==
PROVIDERS: PCP Family Medicine; Visit Provider Student in an Organized Health Care Education/Training Program
DX: E04.1 Nontoxic single thyroid nodule (principal)
CPT/HCPCS: 36415; 76536; 84439; 84443

== ENCOUNTER 2022-03-26 09:50 | Day surgery (SDC) | payer OTHER, SELFPAY ==
--- NOTE | 2022-03-26 09:57 | P.PN_ITS ---
PFSH PFS Medical History (Updated 03/26/22 @ 10:09 by Da Bird RN) Family history of GERD History of airborne allergies History of anxiety History of depression History of mitral valve prolapse History of thyroid disease History of wrist fracture Surgical History (Updated 03/26/22 @ 10:09 by Da Bird RN) History of breast biopsy History of hysterectomy History of partial thyroidectomy Family History (Updated 03/26/22 @ 10:10 by Da Bird RN) Other Family history of cancer Family history of diabetes mellitus type I Family history of hypertension Social History (Updated 03/26/22 @ 10:11 by Da Bird RN) Smoking Status: Current every day smoker tobacco type: cigarettes packs per day: 1 alcohol intake: never substance use type: denies use current occupational status: employed Travel in the last 8 weeks: None household members: family housing: house current occupation: 56social long-term current occupational exposures/hazards: No caffeine: Yes [facility] Anesthesia Checklist Patient Identification Patient Identification: Arm Band and Verbal (Name & ) Structural Data Admitted From: Home Planned Operative Procedure/s: Colonoscopy Consent for Planned Operative Procedure(s) Verified: Yes NPO Status Verified Time NPO: 00:00 Additional verifications Anesthesia Reactions: No Hx Blood Transfusions: No Blood Transfusion Reaction: No Airway Assessment C-Spine Mobility Assessed: Yes TMJ Mobility Assessed: Yes Dentition: Good Dentition Neurological Assessment Level of Consciousness: Awake Hx Seizures: No Numbness or tingling in extremities: No Anesthesia Plan Anesthesia Risk discussed: Yes Anesthesia Plan: Verified ASA Class: II Anesthesia Type: MAC
[2022-03-26 10:11] VITALS: BP 103/56; PULSE 76; RESP 18; TEMP 36.3; O2SAT 96; BMI 44.7
[2022-03-26 10:32] VITALS: O2SAT 96
[2022-03-26 11:40] VITALS: BP 144/73; PULSE 80; RESP 16; TEMP 36.4; O2SAT 97
--- NOTE | 2022-03-26 11:40 | P.PCN_ITS ---
Procedure: Date: 03/26/22 Patient Date of :: 1965 Procedure Performed:: Total colonoscopy to ileocecal valve with numerous polypectomy Indications:: Patient is a 56-year-old female from [facility] referred and scheduled for screening colonoscopy. Patient states that she has a family history of colon cancer in her maternal grandmother and maternal uncle. She has had 3 prior colonoscopies. She states that she has usually have about 7 or 8 polyps removed at age colonoscopy. She states that she has previously had to have them approximately every 3 years. Last colonoscopy was 4 years ago. Patient states that she had some vomiting and threw up about half of the bowel prep. Performing Provider:: Jose Daniel MD Referring Provider:: Rainer Levy MD Sedation:: MAC sedation Procedure:: Patient history was obtained and appropriate physical examination was performed. Patient's medications and allergies were reviewed. Informed consent was obtained after explaining the benefits, alternatives, and risks of the procedure including, but not limited to, bleeding, perforation, missed lesions, and adverse reaction to anesthesia medications. Patient was transported to endoscopy procedure room. Patient was connected to monitoring devices. Throughout the procedure the patient's blood pressure, pulse, and oxygen saturations were monitored continuously. Patient identification and planned procedure were verified by the staff. Patient was positioned in lateral decubitus position. Digital anorectal exam was performed. Variable stiffness Olympus colonoscope was inserted and advanc ed under direct visualization to the cecum. Adequacy of the colonic preparation was noted. The colonoscope was advanced briefly into the ileocecal valve. The colonoscope was then slowly withdrawn while carefully examining the color, texture, anatomy, and integrity of the mucosoa circumferentially. Within the rectum retroflexion was performed. Colonoscope was then withdrawn. Findings:: She had somewhat of a fair preparation with particulate liquid stool through the colon but this was able to be cleared with thorough irrigation and suctioning. There were multiple small diminutive polyps noted. Most of these appeared to be hyperplastic. In the sigmoid colon there were multiple hyperplastic appearing polyps removed with a variety of cold biopsy and cold snare. In the rectosigmoid there were 8 polyps removed with a variety of biopsy and cold snare. In the rectum there were 10 polyps removed with a variety of biopsies and cold snare. She did have some sigmoid diverticulosis. Impression: Polyps as noted above. Total of 23 polyps. Mostly diminutive hyperplastic appearing Sigmoid diverticulosis Recommendations:: Follow-up colonoscopy pending pathology Complications:: None immediately apparent Estimated blood obtained (mL): 2
[2022-03-26 11:50] VITALS: BP 125/70; PULSE 85; RESP 16; O2SAT 96
[2022-03-26 12:00] VITALS: BP 113/64; PULSE 71; RESP 16; O2SAT 96
[2022-03-26 12:10] VITALS: BP 112/57; PULSE 73; RESP 16; O2SAT 95
== END 2022-03-26 12:10 | disposition home or self-care (01) ==
PROVIDERS: PCP Family Medicine; Visit Provider Surgery
PROC: 0DJD8ZZ Inspection of Lower Intestinal Tract, Via Natural or Artificial Opening Endoscopic (ICD-10-PCS; CPT 45380; principal; 2022-03-26 10:30)
DX: Z12.11 Encounter for screening for malignant neoplasm of colon (principal); K63.5 Polyp of colon; Z72.0 Tobacco use; Z86.010 Personal history of colon polyps
CPT/HCPCS: 45380; 45385; J2704

== ENCOUNTER → 2022-04-22 11:45 | Outpatient (CLI) | payer OTHER, SELFPAY ==
[2022-04-22 19:07] LABS: Basophils # 0.1 K/mm3 (0-0.2); Basophils % 0.7 % (0.1-2.0); Eosinophils # 0.2 K/mm3 (0.0-0.4); Eosinophils % 2.8 % (0.1-12.0); Hematocrit 46.5 % (37.0-47.0); Hemoglobin 14.6 g/dL (12.2-16.2); Lymphocytes # 1.8 K/mm3 (0.7-4.5); Lymphocytes % 26.3 % (10-50); Mean Corpuscular HGB Conc 31.3 g/dL (31.8-35.4); Mean Corpuscular Hemoglobin 30.1 pg (27.0-31.2); Mean Corpuscular Volume 96.2 fl (81-99); Mean Platelet Volume 9.3 fl (7.4-10.4); Monocytes # 0.4 K/mm3 (0.1-1.0); Monocytes % 5.8 % (1.7-9.3); Neutrophils # 4.4 K/mm3 (1.8-7.8); Neutrophils % 64.4 % (37.0-80.0); Platelet Count 286 K/mm3 (142-424); Red Blood Count 4.83 M/mm3 (4.20-5.40); Red Cell Distribution Width 13.8 % (11.5-17.5); White Blood Count 6.9 K/mm3 (4.8-10.8)
[2022-04-22 19:30] LABS: Anion Gap 7.9 mEq/L (5-15); Blood Urea Nitrogen 13 mg/dl (7-17); Calcium 9.3 mg/dl (8.4-10.2); Carbon Dioxide 28 mmol/L (22.0-30.0); Chloride 108 mmol/L (98-107); Estimated Glomerular Filt Rate 87 ml/min (>60); GFR (African American) 105 ML/MIN (>60); Glucose 98 mg/dl (74-100); Potassium 4.9 mmoL/L (3.5-5.1); Sodium 139 mmol/L (136-145)
== END ==
PROVIDERS: PCP Nurse Practitioner; Visit Provider Nurse Practitioner
DX: Z01.818 Encounter for other preprocedural examination (principal)
CPT/HCPCS: 80048; 85025

== ENCOUNTER → 2022-04-23 15:46 | Outpatient (CLI) | payer OTHER, SELFPAY ==
--- NOTE | 2022-04-23 15:54 | ECG_ITS ---
APPROVED REPORT Exam: Resting ECG HR:82 bpm ECG Measurements Heart Rate 82 AXES HI 152 P 65 QRSd 78 QRS 60 QT 364 T 75 QTc 403 Conclusion SINUS RHYTHM LOW QRS VOLTAGE IN PRECORDIAL LEADS Poor R wave progression, previously noted BORDERLINE ECG UNCONFIRMED REPORT Electronically signed by : Shaheed Restrepo MD 04/24/2022 12:12:43
== END ==
PROVIDERS: PCP Family Medicine; Visit Provider Nurse Practitioner
DX: Z01.810 Encounter for preprocedural cardiovascular examination (principal)
CPT/HCPCS: 93005

== ENCOUNTER → 2022-08-19 13:03 | Outpatient (CLI) | payer OTHER, SELFPAY ==
--- NOTE | 2022-08-19 13:03 | MM_ITS ---
PROCEDURE INFORMATION: Exam: MG Bilateral Screening 3D Mammography Exam date and time: 08/19/2022 1:13 PM Age: 56 years old Clinical indication: Screening. Her maternal aunt had breast cancer. TECHNIQUE: Imaging protocol: Bilateral Screening tomosynthesis and 2D mammography including computer-aided detection (CAD) when performed. COMPARISON: 1. MG MM DIG SCREENING MAMM BI W/CAD 04/29/2021 1:33 PM 2. MG MM DIG SCREENING MAMM BI W/CAD 04/14/2020 4:01 PM 3. MG MM DIG SCREENING MAMM BI W/CAD 02/08/2019 4:18 PM 4. MG DMSB DIG MAMM-SCREEN JASON W/CAD 12/02/2016 4:06 PM FINDINGS: MAMMOGRAPHY: Breast composition: There are scattered areas of fibroglandular density. Mass: No suspicious mass. Architectural distortion: None. Calcifications: No suspicious calcifications. Asymmetric density: No developing asymmetry. Skin thickening: None. Axillary adenopathy: None. IMPRESSION: No mammographic evidence of malignancy. Annual screening is recommended unless otherwise clinically indicated. ASSESSMENT: BI-RADS Category 1: Negative
== END ==
PROVIDERS: PCP Family Medicine; Visit Provider Family Medicine
DX: Z12.31 Encounter for screening mammogram for malignant neoplasm of breast (principal)
CPT/HCPCS: 77063; 77067

== ENCOUNTER → 2022-09-13 13:16 | Outpatient (CLI) | payer OTHER, SELFPAY ==
--- NOTE | 2022-09-13 13:16 | US_ITS ---
FINAL REPORT CLINICAL HISTORY: hx nodules COMPARISON: October 08, 2021 FINDINGS: THYROID ULTRASOUND The left lobe is surgically absent. The right lobe of the thyroid measures 5.4 x 2.4 x 1.9 cm. There are several right thyroid nodules. The dominant right thyroid nodule measures 22 x 21 x 16 mm and previously measured 20 x 14 x 21 mm. This is cystic and solid consistent with a TI-RADS 2. This is slightly larger but visually not significantly changed. There are several other less than 5 mm pulmonary nodules. There is no new dominant mass or nodule. IMPRESSION: Multiple nodules as described. No follow-up required. Reviewed, Interpreted and Dictated by Jose Kohli III, MD Transcribed by Christiano Chowdary Authenticated and [facility]
[2022-09-13 15:34] LABS: Free T4 (Free Thyroxine) 0.99 ng/dl (0.78-2.19)
[2022-09-13 15:50] LABS: Thyroid Stimulating Hormone 2.72 uIU/mL (0.465-4.68)
== END ==
PROVIDERS: PCP Family Medicine; Visit Provider Student in an Organized Health Care Education/Training Program
DX: E04.1 Nontoxic single thyroid nodule (principal)
CPT/HCPCS: 36415; 76536; 84439; 84443

== ENCOUNTER → 2023-03-25 12:55 | Outpatient (CLI) | payer BC, SELFPAY ==
--- NOTE | 2023-03-25 13:02 | XR_ITS ---
FINAL REPORT CLINICAL HISTORY: bilateral lower extremity paresthesias COMPARISON: None FINDINGS: Four views of the lumbar spine were obtained. There is no evidence of fracture or dislocation. The vertebral alignment is normal. Mild degenerative change. There is mild leftward curvature. No paraspinous soft tissue abnormalities identified. There is a rounded foreign body on or in the right abdomen. IMPRESSION: Mild degenerative change without acute bony abnormality. Reviewed, Interpreted and Dictated by Jose Kohli III, MD Transcribed by Sia Li Authenticated and [facility]
== END ==
LOC: RAD 12:57
PROVIDERS: PCP Nurse Practitioner; Visit Provider Nurse Practitioner
DX: R20.2 Paresthesia of skin (principal)
CPT/HCPCS: 72100

== ENCOUNTER → 2023-04-07 15:51 | Outpatient (CLI) | payer BC, SELFPAY ==
--- NOTE | 2023-04-07 15:52 | MM_ITS ---
PROCEDURE INFORMATION: Exam: MG Bilateral Screening 3D Mammography Exam date and time: 04/07/2023 3:51 PM Age: 57 years old Clinical indication: Screening examination TECHNIQUE: Imaging protocol: Bilateral Screening tomosynthesis and 2D mammography including computer-aided detection (CAD) when performed. COMPARISON: 1. MG MM DIG SCREENING MAMM BI W/CAD 08/19/2022 1:13 PM 2. MG MM DIG SCREENING MAMM BI W/CAD 04/29/2021 1:33 PM FINDINGS: MAMMOGRAPHY: Breast composition: There are scattered areas of fibroglandular density. Mass: None. Architectural distortion: None. Calcifications: No suspicious calcifications. Asymmetric density: None. Skin thickening: None. Axillary adenopathy: None. IMPRESSION: No mammographic evidence of malignancy. Annual screening is recommended unless otherwise clinically indicated. ASSESSMENT: BI-RADS Category 1: Negative
== END ==
PROVIDERS: PCP Nurse Practitioner; Visit Provider Nurse Practitioner
DX: Z12.31 Encounter for screening mammogram for malignant neoplasm of breast (principal)
CPT/HCPCS: 77063; 77067

== ENCOUNTER 2023-07-28 22:10 | Outpatient (CLI) | payer BC, SELFPAY ==
[2023-07-28 18:31] LABS: Basophils # 0.1 K/mm3 (0-0.2); Basophils % 0.9 % (0.1-2.0); Eosinophils # 0.3 K/mm3 (0.0-0.4); Eosinophils % 4.3 % (0.1-12.0); Hematocrit 48.5 % (37.0-47.0); Hemoglobin 15.1 g/dL (12.2-16.2); Lymphocytes # 2.1 K/mm3 (0.7-4.5); Lymphocytes % 35.1 % (10-50); Mean Corpuscular HGB Conc 31.1 g/dL (31.8-35.4); Mean Corpuscular Hemoglobin 31.4 pg (27.0-31.2); Mean Corpuscular Volume 101.1 fl (81-99); Mean Platelet Volume 9.4 fl (7.4-10.4); Monocytes # 0.4 K/mm3 (0.1-1.0); Monocytes % 7.2 % (1.7-9.3); Neutrophils # 3.1 K/mm3 (1.8-7.8); Neutrophils % 52.5 % (37.0-80.0); Platelet Count 221 K/mm3 (142-424); Red Cell Distribution Width 13.6 % (11.5-17.5); White Blood Count 5.9 K/mm3 (4.8-10.8)
[2023-07-28 18:35] LABS: Alanine Aminotransferase 27 U/L (12-78); Albumin/Globulin Ratio 1.7 (1.1-1.8); Alkaline Phosphatase 86 U/L (38-126); Anion Gap 7.4 mEq/L (5-15); Aspartate Amino Transferase 31 U/L (14-36); Bilirubin,Total 0.4 mg/dl (0.2-1.3); Blood Urea Nitrogen 12 mg/dl (7-17); Calcium 8.6 mg/dl (8.4-10.2); Carbon Dioxide 26 mmol/L (22.0-30.0); Chloride 109 mmol/L (98-107); Cholesterol 206 mg/dl (140-200); Estimated Glomerular Filt Rate 103 ml/min (>60); GFR (African American) 125 ML/MIN (>60); Globulin 2.3 g/dL (1.3-3.2); Glucose 92 mg/dl (74-100); HDL Cholesterol 52 mg/dl (40-60); Potassium 4.4 mmoL/L (3.5-5.1); Sodium 138 mmol/L (136-145); Total Protein,Serum 6.3 g/dl (6.3-8.2); Triglycerides 101 mg/dl (30-150); VLDL Cholesterol 20 mg/dL (0-40)
[2023-07-28 18:46] LABS: Direct LDL Cholesterol 102.49 mg/dL (100-129)
[2023-07-28 18:56] LABS: 25-OH Vitamin D, Total 18.8 ng/mL (30-100)
[2023-07-28 19:07] LABS: Hemoglobin A1C 5.9 % (4.0-6.0); Thyroid Stimulating Hormone 3.61 uIU/mL (0.465-4.68)
[2023-07-28 19:25] LABS: Vitamin B12 350 pg/mL (239-931)
== END 2023-07-28 23:59 ==
LOC: LAB.DROPOF 22:11
PROVIDERS: PCP Nurse Practitioner; Visit Provider Nurse Practitioner
DX: E04.1 Nontoxic single thyroid nodule (principal); R47.9 Unspecified speech disturbances; R20.2 Paresthesia of skin; R55 Syncope and collapse; R05.9 Cough, unspecified; E55.9 Vitamin D deficiency, unspecified; E78.00 Pure hypercholesterolemia, unspecified; Z79.899 Other long term (current) drug therapy
CPT/HCPCS: 80053; 80061; 82306; 82607; 83036; 84443; 85025

== ENCOUNTER 2023-08-18 14:03 | Outpatient (CLI) | payer BC, SELFPAY ==
--- NOTE | 2023-08-18 14:04 | CT_ITS ---
FINAL REPORT TECHNIQUE: Axial images were obtained from the lung apex to the mid abdomen by computed tomography. This study was performed with techniques to keep radiation doses as low as reasonably achievable (ALARA). Individualized dose reduction techniques using automated exposure control or adjustment of mA and/or kV according to the patient's size were employed. CLINICAL HISTORY: lung cancer screening smoker 1 ppd x 35 years FINDINGS: CHEST CT LOW DOSE CTDI vol (mGy): 2.90 DLP (mGy-cm): 99.77 There is no axillary adenopathy. There are calcified left hilar nodes. The heart is normal in size. There is no pericardial or pleural effusion. Lung window images demonstrate no suspicious infiltrate or nodule. There is a calcified granuloma at the left base. Limited images of the upper abdomen are unremarkable. IMPRESSION: Lung RADS category 1. Recommend 12 month follow-up low-dose chest CT. Reviewed, Interpreted and Dictated by Hakan Burns MD Transcribed by Mary Wells Authenticated and [facility]
--- NOTE | 2023-08-18 14:18 | CA_ITS ---
APPROVED REPORT EXAM: Comprehensive 2D, Doppler, and color-flow Echocardiogram Elementary Reading Specialist: Josefina Horne RVT Ht: 5 ft 1 in Wt: 251lbs BSA: 2.08 BP: 138/88 mmHg Indications: SYNCOPE,SMOKER,HTN,MVP TDS-PT BODY HABITUS 2D Dimensions LA Volume 47.50 mL LA Volume Index 22.84 mL/m2 (M/F) 16-34 M-Mode Dimensions RVDd 2.65 cm (0.9-2.6) LA Diam 3.53 cm (1.9-4.0) LVDd 5.62 cm (3.5-5.7) LVDs 4.01 cm (3.5-5.7) IVSd 0.52 cm (0.6-1.1) PWd 0.44 cm (0.6-1.1) EF (Teich) 54.60% FS 28.60% EDV (Teich) 154.90 mL TAPSE 2.44 (<1.7) ESV (Teich) 70.40 mL LV Diastology E Decel Time 170 (160-240 msec) E/A Ratio 1.0 Aortic Valve DIANA Index 1.82 cm2/m2 AoV Peak Rojelio. 110.0 (50-130 cm/s) AO Peak GR. 4.80 mmHg AO Mean GR. 2.30 (<5 mmHg) AO VTI 21.7 (18-25 cm) DIANA (VTI) 3.87 (2.5-4.5 cm2) Mitral Valve MV E Max Rojelio. 97.0 (40-130 cm/s) MV A Velocity 96.0 (40-130 cm/s) E/A Ratio 1.01 MV PHT 50.0 ms Pulmonary Valve PV Peak Velocity 78.0 (50-150 cm/s) Left Ventricle The left ventricle is normal size. The left ventricular systolic function is normal. The left ventricular ejection fraction is within the normal range. There is normal left ventricular wall thickness. There is normal LV segmental wall motion. The left ventricular diastolic function is normal. LVEF is 65%. Right Ventricle The right ventricle is normal size. The right ventricular systolic function is normal. Atria The left atrium size is normal. The right atrium size is normal. There is no Doppler evidence of interatrial shunt. Aortic Valve The aortic valve opens well. There is no aortic valvular stenosis. No aortic regurgitation is present. Mitral Valve The mitral valve is normal in structure. No evidence of mitral valve stenosis. There is no mitral valve regurgitation noted. Tricuspid Valve The tricuspid valve leaflets are thin and pliable. Trace tricuspid regurgitation. There is insufficient TR jet to estimate RVSP. Pulmonic Valve The pulmonary valve is normal in structure. Trace pulmonic regurgitation. Great Vessels The aortic root is normal in size. The ascending aorta is normal in size. IVC is normal in size and collapses >50% with inspiration. Pericardium There is no pericardial effusion. Other Information Study Quality: Fair Conclusion Normal biventricular systolic function. No significant valvular stenosis or regurgitation. Electronically signed by : Riya Wood MD 08/22/2023 00:00:22
== END 2023-08-18 23:59 ==
LOC: RAD 14:04
PROVIDERS: PCP Nurse Practitioner; Visit Provider Nurse Practitioner
DX: Z87.891 Personal history of nicotine dependence (principal); R05.9 Cough, unspecified; R55 Syncope and collapse
CPT/HCPCS: 71271; 93225; 93306

== ENCOUNTER 2023-09-14 15:56 | Outpatient (CLI) | payer BC, SELFPAY ==
--- NOTE | 2023-09-14 15:57 | MR_ITS ---
PROCEDURE INFORMATION: Exam: MR Head Without and With Contrast Exam date and time: 09/14/2023 4:10 PM Age: 57 years old Clinical indication: Speech disturbance; Additional info: Transient speech disturbance, paresthesias TECHNIQUE: Imaging protocol: Magnetic resonance imaging of the head without and with contrast. Contrast material: PROHANCE; Contrast volume: 23 ml; Contrast route: IV; COMPARISON: MR HEAD/BRAIN WO/W CON 02/07/2020 10:15 AM FINDINGS: Brain: No acute infarct. No hemorrhage. No significant white matter disease. No edema. No abnormal enhancement. Cerebral ventricles: Normal. No ventriculomegaly. Bones/joints: Unremarkable. Paranasal sinuses: Normal as visualized. No acute sinusitis. Mastoid air cells: Normal as visualized. No mastoid effusion. Orbital cavities: Unremarkable. Soft tissues: Unremarkable. IMPRESSION: No acute infarct.
[2023-09-14 16:26] LABS: Blood Urea Nitrogen 15 mg/dl (7-17); Estimated Glomerular Filt Rate 74 ml/min (>60); GFR (African American) 90 ML/MIN (>60)
[2023-09-14] MEDS: GADOTERIDOL INJ 17ML SYRINGE 23 ML IV (16:59)
[2023-09-14] MEDS: SODIUM CHLORIDE 0.9% 10ML SYR (RAD ONLY) 10 ML IV (16:59)
== END 2023-09-14 23:59 | disposition home or self-care (01) ==
LOC: RAD 15:57
PROVIDERS: PCP Nurse Practitioner; Visit Provider Nurse Practitioner
DX: R47.9 Unspecified speech disturbances (principal); R20.2 Paresthesia of skin
CPT/HCPCS: 36415; 70553; 82565; 84520; A9576

== ENCOUNTER 2023-09-22 12:30 | Outpatient (CLI) | payer BC, SELFPAY ==
--- NOTE | 2023-09-22 12:33 | NM_ITS ---
APPROVED REPORT Exam: Nuclear Stress Test Indication: DYSRHYTHMIA, VALVULAR DISEASE, OBESITY, HYPERLIPIDEMIA, TOB USE, FM HX, C.P., SOB, PALPITATIONS, SYNCOPE, FATIGUE Patient Location: Outpatient Stress Tech: Sherri Natarajan [place] Tech:Nancy De La Rosa, ARRT RT(R)(N) Ht: 5 ft 1 in Wt: 243 lbs Bra Size: DD HR: 69 bpm BP: 110/55 mmHg BSA: 2.05 m2 Rhythm: NSR TID: 1.04 BMI: 45.9 History: DYSRHYTHMIA, VALVULAR DISEASE, HYPERLIPIDEMIA, TOB USE, FM HX, C.P., SOB, PALPITATIONS, SYNCOPE, FATIGUE Procedure: Patient received 0.4 mg of intravenous Lexiscan, resting heart rate 69 bpm, resting blood pressure 110/55 mmHg, with Lexiscan maximum heart rate achieved was 93 bpm which is % of the maximum predicted heart rate and blood pressure was 135/81 mmHg. With Lexiscan, patient denied any complaint of chest pain. Cardiac Stress and Resting SPECT Images: Cardiac Stress and Resting SPECT images were obtained using technetium 99m Myoview 32.0 mCi stress and 10.11 mCi at rest. Raw images demonstrate significant soft tissue overlap with the cardiac borders. This may affect the diagnostic interpretation of the study findings. Resting and stress imaging in supine position demonstrate a medium-sized, moderate, fixed perfusion defect in the anterior LV wall. This is no longer visualized with prone stress imaging. Findings are suggestive of soft tissue attenuation. Gated imaging demonstrates normal global and regional LV systolic function. LVEF is calculated at 54%. Conclusion: Soft tissue attenuation is present. No definite evidence of fixed or reversible perfusion defects. Gated imaging demonstrates normal global and regional LV systolic function. LVEF is calculated at 54%. Electronically signed by : Riya Wood MD 09/25/2023 19:50:29
[2023-09-22] MEDS: SODIUM CHLORIDE 0.9% 10ML SYR (RAD ONLY) 10 ML IV ×2 (12:40→14:10)
[2023-09-22] MEDS: REGADENOSON 0.4MG/5ML SYRINGE 0.400000000000000022 MG IV (14:10)
--- NOTE | 2023-09-22 14:18 | CA_ITS ---
APPROVED REPORT Exam: Pharmacologic Technologist: Sherri Jones, Ht: 5 ft 1 in Wt: 248 lbs BSA: 2.07 m2 HR: 68 bpm BP: 110/55 mmHg Rhythm: NSR Medical History Medications: Metoprolol,,,,, [place],,,,, Vitamin D3 B12,,,,, Levocetririzine,,,,, Stress Test Details Test: LEXISCAN Reason for pharmacologic stress test: changed from exercise stress test due to inability to reach target heart rate. HR Resting HR: 69 bpm Max Heart Rate (APMHR): 163 bpm Max HR Achieved: 93 bpm Target HR (85% APMHR): 139 bpm % of APMHR: 57 Recovery HR: 80 bpm BP Resting BP: 110/55 mmHg Max BP: 135/81 mmHg Recovery BP: 117.0/65.0 mmHg ECG Resting ECG: NSR, cannot R/O old inferior AK Stress ECG: No significant ST changes Arrhythmia: None Clinical Exercise duration: 04:04 min Highest Stage Achieved: Exercise capacity: 1.0 METs Stress ECG Conclusion Symptoms: Nausea. No CP. Arrhythmias/Ectopy: None ST-T Changes: No significant ST changes. Conclusion: Unremarkable Lexiscan stress. Myoview images reported separately. Test Summary REST 05:19 . . 69 . 110/ 55 . . Stage 1 01:00 . . 91 . . . . Stage 2 01:00 . . 89 . . . . Stage 3 01:00 . . 86 . 135/ 81 . . Stage 4 01:00 . . 88 . 131/ 73 . . Stage 4 01:04 . . 89 . 131/ 73 . Stop exercise at 04:04 RECOVERY 01:00 . . 80 . . . . RECOVERY 02:00 . . 81 . . . . RECOVERY 03:00 . . 80 . 119/ 66 . . RECOVERY 03:25 . . 81 . 117/ 65 . . Electronically signed by : Riya Wood MD 09/25/2023 19:47:16
[2023-09-22] MEDS: ISOTOPE MYOVIEW (PER STUDY) 1 DOSE IV (15:29)
== END 2023-09-22 23:59 | disposition home or self-care (01) ==
LOC: RAD 12:31
PROVIDERS: PCP Nurse Practitioner; Visit Provider Internal Medicine
DX: R42 Dizziness and giddiness (principal); R55 Syncope and collapse; I47.10 Supraventricular tachycardia, unspecified; R94.31 Abnormal electrocardiogram [ECG] [EKG]
CPT/HCPCS: 78452; 93017; 93018; A9502; J2785

== ENCOUNTER 2023-10-07 13:15 | Outpatient (CLI) | payer BC, SELFPAY ==
--- NOTE | 2023-10-07 13:16 | US_ITS ---
FINAL REPORT CLINICAL HISTORY: thyroid nodules COMPARISON: 09/13/2022 FINDINGS: Sonographic images of the thyroid gland were obtained. The right thyroid lobe measures 5.6 x 2.0 x 2.0 cm. in length. There are multiple right thyroid lobe nodules. Largest nodule is cystic, solid and hypoechoic measuring 23 x 18 x 17 mm. This is not significantly changed since the previous. The left thyroid lobe is surgically absent. The thyroid isthmus measures 0.5 0 cm. IMPRESSION: Right thyroid lobe nodules, not significantly changed. Consider follow-up in 12 months. Reviewed, Interpreted and Dictated by Jose Kohli III, MD Transcribed by Mary Wells Authenticated and . [facility]
== END 2023-10-07 23:59 | disposition home or self-care (01) ==
LOC: RAD 13:16
PROVIDERS: PCP Nurse Practitioner; Visit Provider Nurse Practitioner
DX: E04.1 Nontoxic single thyroid nodule (principal)
CPT/HCPCS: 76536

== ENCOUNTER 2023-10-27 15:28 | Outpatient (CLI) | payer BC, SELFPAY | END 2023-10-27 23:59 | disposition home or self-care (01) | LOC: RT 15:29 | PROVIDERS: PCP Nurse Practitioner; Visit Provider Internal Medicine | DX: R55 Syncope and collapse (principal); R42 Dizziness and giddiness; I47.10 Supraventricular tachycardia, unspecified | CPT/HCPCS: 93270 ==

== ENCOUNTER 2024-01-02 16:25 | Outpatient (CLI) | payer BC, SELFPAY ==
[2024-01-02 20:51] LABS: Adenovirus,PCR Not Detected (NotDetected); Bordetella Pertussis Not Detected (NotDetected); Chlamydophila Pneumoniae, PCR Not Detected (NotDetected); Coronavirus 229E Not Detected (NotDetected); Coronavirus NL63 Not Detected (NotDetected); Coronavirus OC43 Not Detected (NotDetected); Coronovirus HKU1,PCR Not Detected (NotDetected); Human Metapneumovirus Not Detected (NotDetected); Influenza A, PCR Not Detected (NotDetected); Influenza AH1, 2009 Not Detected (NotDetected); Influenza AH1, PCR Not Detected (NotDetected); Influenza AH3,PCR Not Detected (NotDetected); Influenza B, PCR Not Detected (NotDetected); Mycoplasma Pneumoniae, PCR Not Detected (NotDetected); Parainfluenza 1, PCR Not Detected (NotDetected); Parainfluenza 2, PCR Not Detected (NotDetected); Parainfluenza 3, PCR Not Detected (NotDetected); Parainfluenza 4, PCR Not Detected (NotDetected); Respiratory Syncytial Virus Not Detected (NotDetected); Rhinovirus/Enterovirus Not Detected (NotDetected)
[2024-01-04 22:10] LABS: Coronavirus 19, PCR Detected (NotDetected)
== END 2024-01-02 23:59 | disposition home or self-care (01) ==
LOC: LAB.DROPOF 01-03 15:17
PROVIDERS: PCP Nurse Practitioner; Visit Provider Nurse Practitioner
DX: J06.9 Acute upper respiratory infection, unspecified (principal); Z72.0 Tobacco use
CPT/HCPCS: 87581; 87632; 87635; 87798

== ENCOUNTER 2024-01-03 15:48 | Outpatient (CLI) | payer BC, SELFPAY ==
--- NOTE | 2024-01-03 15:53 | XR_ITS ---
FINAL REPORT CLINICAL HISTORY: cough, bronchitis, RLL pneumonia smoker x 30 yrs COMPARISON: 08/13/2021 FINDINGS: Two views of the chest were obtained. The heart size and pulmonary vascularity are within normal limits. The mediastinum is normal. No acute pulmonary abnormality is identified. There is no pneumothorax. The bony thorax is intact. IMPRESSION: No active cardiopulmonary disease. Reviewed, Interpreted and Dictated by Jose Kohli III, MD Transcribed by Mary Wells Authenticated and [facility]
== END 2024-01-03 23:59 | disposition home or self-care (01) ==
LOC: RAD 15:49
PROVIDERS: PCP Nurse Practitioner; Visit Provider Nurse Practitioner
DX: R05.9 Cough, unspecified (principal); J18.9 Pneumonia, unspecified organism; F17.210 Nicotine dependence, cigarettes, uncomplicated
CPT/HCPCS: 71046

== ENCOUNTER 2024-04-23 13:27 | Outpatient (CLI) | payer BC, SELFPAY ==
--- NOTE | 2024-04-23 13:28 | MM_ITS ---
PROCEDURE INFORMATION: Exam: MG Bilateral Screening 3D Mammography Exam date and time: 04/23/2024 1:27 PM Age: 58 years old Clinical indication: Screening examination TECHNIQUE: Imaging protocol: Bilateral Screening tomosynthesis and 2D mammography including computer-aided detection (CAD) when performed. COMPARISON: 1. MG MM DIG SCREENING MAMM BI W/CAD 04/07/2023 3:51 PM 2. MG MM DIG SCREENING MAMM BI W/CAD 08/19/2022 1:13 PM FINDINGS: MAMMOGRAPHY: Breast composition: There are scattered areas of fibroglandular density. Mass: None. Architectural distortion: None. Calcifications: No suspicious calcifications. Asymmetric density: None. Skin thickening: None. Axillary adenopathy: None. IMPRESSION: No mammographic evidence of malignancy. Annual screening is recommended unless otherwise clinically indicated. ASSESSMENT: BI-RADS Category 1: Negative.
== END 2024-04-23 23:59 | disposition home or self-care (01) ==
LOC: RAD 13:28
PROVIDERS: PCP Nurse Practitioner; Visit Provider Nurse Practitioner
DX: Z12.31 Encounter for screening mammogram for malignant neoplasm of breast (principal)
CPT/HCPCS: 77063; 77067

== ENCOUNTER 2024-08-30 15:06 | Outpatient (CLI) | payer BC, SELFPAY ==
[2024-08-30 16:11] LABS: Basophils % 0.4 % (0.1-2.0); Eosinophils # 0.1 K/mm3 (0.0-0.4); Eosinophils % 1.1 % (0.1-12.0); Hematocrit 46.5 % (37.0-47.0); Hemoglobin 14.8 g/dL (12.2-16.2); Lymphocytes # 1.3 K/mm3 (0.7-4.5); Lymphocytes % 11.6 % (10-50); Mean Corpuscular HGB Conc 31.8 g/dL (31.8-35.4); Mean Corpuscular Volume 94.1 fl (81-99); Mean Platelet Volume 9.6 fl (7.4-10.4); Monocytes # 0.4 K/mm3 (0.1-1.0); Neutrophils % 82.6 % (37.0-80.0); Nucleated Red Blood Cells # 0 10^3/uL; Nucleated Red Blood Cells % 0 %; Platelet Count 265 K/mm3 (142-424); Red Blood Count 4.94 M/mm3 (4.20-5.40); Red Cell Distribution Width 14.4 % (11.5-17.5); White Blood Count 10.9 K/mm3 (4.8-10.8)
[2024-08-30 16:34] LABS: Chloride 105 mmol/L (98-107)
[2024-08-30 16:35] LABS: Potassium 4.1 mmoL/L (3.5-5.1); Sodium 139 mmol/L (136-145)
[2024-08-30 16:37] LABS: Alanine Aminotransferase 20 U/L (12-78); Alkaline Phosphatase 87 U/L (38-126); Anion Gap 12.1 mEq/L (5-15); Aspartate Amino Transferase 22 U/L (14-36); Bilirubin,Indirect 0.3 mg/dL (0.0-0.9); Bilirubin,Total 0.3 mg/dl (0.2-1.3); Bilirubin,Unconjugated 0.3 mg/dL (0.0-1.1); Blood Urea Nitrogen 12 mg/dl (7-17); Carbon Dioxide 26 mmol/L (22.0-30.0); Cholesterol 212 mg/dl (140-200); Estimated Glomerular Filt Rate 86 ml/min (>60); GFR (African American) 104 ML/MIN (>60); Total Protein,Serum 6.7 g/dl (6.3-8.2); Triglycerides 195 mg/dl (30-150); VLDL Cholesterol 39 mg/dL (0-40)
[2024-08-30 16:38] LABS: Calcium 9.4 mg/dl (8.4-10.2); Chol/HDL Ratio 2.7 (1-3.5); Glucose 139 mg/dl (74-100); HDL Cholesterol 78 mg/dl (40-60)
[2024-08-30 16:49] LABS: Direct LDL Cholesterol 96.63 mg/dL (100-129)
[2024-08-30 16:52] LABS: Free T4 (Free Thyroxine) 1.04 ng/dl (0.78-2.19)
[2024-08-30 17:08] LABS: Thyroid Stimulating Hormone 1.87 uIU/mL (0.465-4.68)
== END 2024-08-30 23:59 | disposition home or self-care (01) ==
LOC: RT 15:07
PROVIDERS: PCP Nurse Practitioner; Visit Provider Internal Medicine
DX: I49.3 Ventricular premature depolarization (principal); R42 Dizziness and giddiness; R06.00 Dyspnea, unspecified; I47.10 Supraventricular tachycardia, unspecified
CPT/HCPCS: 36415; 80048; 80061; 80076; 84439; 84443; 85025; 93270

== ENCOUNTER 2024-09-04 13:56 | Outpatient (CLI) | payer BC, SELFPAY ==
[2024-09-04 21:26] LABS: Hemoglobin A1C 5.9 % (4.0-6.0)
== END 2024-09-04 23:59 | disposition home or self-care (01) ==
LOC: LAB.DROPOF 09-05 12:02
PROVIDERS: PCP Nurse Practitioner; Visit Provider Nurse Practitioner
DX: R73.01 Impaired fasting glucose (principal)
CPT/HCPCS: 83036

== ENCOUNTER 2024-09-13 12:58 | Outpatient (CLI) | payer BC, SELFPAY ==
--- NOTE | 2024-09-13 13:00 | CA_ITS ---
FINAL REPORT TECHNIQUE: Left lower extremity venous duplex was performed with augmentation and compression. CLINICAL HISTORY: Edema, obesity COMPARISON: None FINDINGS: Proper flow is seen throughout the deep venous system. There is no evidence of deep venous thrombosis in the left lower extremity. IMPRESSION: No deep venous thrombosis in the left lower extremity. Reviewed, Interpreted and Dictated by Hakan Burns MD Transcribed by Esperanza Aguiar Authenticated and . [facility]
== END 2024-09-13 23:59 | disposition home or self-care (01) ==
LOC: RT 12:59
PROVIDERS: PCP Nurse Practitioner; Visit Provider Internal Medicine
DX: R22.42 Localized swelling, mass and lump, left lower limb (principal)
CPT/HCPCS: 93971

== ENCOUNTER 2024-09-27 15:15 | Outpatient (CLI) | payer BC, SELFPAY ==
--- NOTE | 2024-09-27 15:30 | US_ITS ---
FINAL REPORT TECHNIQUE: Sonographic images of the thyroid gland were obtained in the longitudinal and transverse planes. CLINICAL HISTORY: History of right thyroid nodule COMPARISON: 10/07/2023 FINDINGS: The right lobe measures 2.1 x 5.5 x 2.1 cm. The right lobe is homogeneous. There is an isoechoic upper pole nodule measuring 6 mm which is stable. A mixed cystic and solid 7 mm nodule is also unchanged. A 23 mm mixed cystic and solid lesion in the lower pole is stable The left l thyroid lobe is absent. The isthmus measures 2 mm. This is normal. IMPRESSION: Stable right thyroid nodules. Status post left thyroidectomy. Reviewed, Interpreted and Dictated by Doris Marsh MD Transcribed by JAMES Mosher Authenticated and [facility]
== END 2024-09-27 23:59 | disposition home or self-care (01) ==
LOC: RAD 15:16
PROVIDERS: PCP Nurse Practitioner; Visit Provider Nurse Practitioner
DX: E04.1 Nontoxic single thyroid nodule (principal)
CPT/HCPCS: 76536

== ENCOUNTER 2024-10-11 11:29 | Outpatient (CLI) | payer BC, SELFPAY ==
[2024-10-11 12:34] LABS: Anion Gap 7.5 mEq/L (5-15); Blood Urea Nitrogen 13 mg/dl (7-17); Calcium 8.9 mg/dl (8.4-10.2); Carbon Dioxide 32 mmol/L (22.0-30.0); Chloride 101 mmol/L (98-107); Estimated Glomerular Filt Rate 86 ml/min (>60); GFR (African American) 104 ML/MIN (>60); Glucose 109 mg/dl (74-100); Potassium 3.5 mmoL/L (3.5-5.1); Sodium 137 mmol/L (136-145)
== END 2024-10-11 23:59 | disposition home or self-care (01) ==
PROVIDERS: PCP Nurse Practitioner; Visit Provider Internal Medicine
DX: E03.9 Hypothyroidism, unspecified (principal)
CPT/HCPCS: 36415; 80048

== ENCOUNTER 2024-11-22 15:09 | Outpatient (CLI) | payer BC, SELFPAY ==
--- OUTSIDE RECORDS SUMMARY | 2024-11-22 15:11 | XMS_ITS | Clinical Summary ---
Author Organization [facility] Address [address] [place] [address] Phone Care Team Providers Care [employer] Name Role Phone Reji Apple Primary Care Provider [phone] Allergies Active Allergy Reactions Criticality Noted Date Comments Nadolol Hives High Feathers Rash Medium 05/03/2022 Silver Rash Medium 11/26/2021 Medications PRILOSEC OTC 20 mg Oral Tablet, Delayed Release (E.C.) Take 20 mg by mouth daily as needed. 2 Active levocetirizine (XYZAL) 5 mg Oral Tablet Take 5 mg by mouth daily. 2 Active montelukast (SINGULAIR) 10 mg Oral Tablet Take 10 mg by mouth every evening. Active estradioL (ESTRACE) 0.01 % (0.1 mg/gram) Vagl CreamIndication s:Vaginal atrophy Do not use Applicator. Apply pea-size amount with fingertip nightly x2 weeks, then apply 2-3 times per week thereafter 42.5 g 1 2 Active polyethylene glycol (GLYCOLAX) 17 gram/dose Oral PowderIndicatio ns:Rectocele Begin Miralax, 1 capful by mouth mixed in your favorite drink once a day for 1 week prior to surgery, after surgery drink this twice a day for 2 weeks 595 g 2 Active amoxicillin (AMOXIL) 250 mg Oral Capsule Take by mouth 3 times daily. Active docusate sodium (COLACE) 100 mg Oral Capsule Take 1 Capsule by mouth 2 times daily. 60 Capsule 2 2 Active oxyCODONE (ROXICODONE) 5 mg Oral Tablet Take 1 Tablet by mouth every 6 hours as needed for Acute Pain (R52) or Major Surgery/Trauma (G89.18). 10 Tablet 2 Active senna (SENOKOT) 8.6 mg Oral Tablet Take 1 Tablet by mouth daily as needed for Constipation. 30 Tablet 1 2 Active Active Problems Problem Noted Date Diagnosed Date OAB (overactive bladder) 05/06/2022 Rectocele 04/21/2022 Mixed stress and urge urinary incontinence 04/21 Surgical History Surgery Date Site/Laterality Comments CYSTOSCOPY DR. Praful Haney in office THYROID SURGERY OVARY REMOVAL Bilateral HYSTERECTOMY FINGER TRIGGER RELEASE WRIST FRACTURE SURGERY Left COLONOSCOPY CYSTOCELE REPAIR 05/06/2022 N/A Posterior Repair; Cystoscopy; Surgeon: Mary Tsang MD; Location: [facility]; Service: Gynecology CYSTOSCOPY 05/06/2022 Surgeon: Mary Tsang MD; Location: [facility]; Service: Gynecology Medical History Medical History Date Comments Environmental allergies MVP (mitral valve prolapse) Heart murmur Irritable bowel syndrome Arthritis Hyperthyroidism Low blood sugar Rectocele Overactive bladder Urinary incontinence Post-operative nausea and vomiting Family History Relation Name Status Comments Father Mother Alive Social History Tobacco Use Types Packs/Day Years Used Date Smoking Tobacco: Every Day Cigarettes Smokeless Tobacco: Never Tobacco Cessation:Ready to Q uit: Not Asked; Counseling Given: Not Answered Alcohol Use Standard Drinks/Week Comments Yes 0 (1 standard drink = 0.6 oz pure alcohol) a beer here and there, a glass of wine here and there, but not often. Doesn't like it. Comments No Sex and Gender Information Value Date Recorded Sex Assigned at Not on file Legal Sex Female 3:33 AM EDT Gender Identity Not on file Sexual Orientation Not on file Obstetrics History Last Filed Vital Signs Vital Sign Reading Time Taken Comments Blood Pressure 123/72 05/06/2022 6:15 PM EST Pulse 74 06/15/2022 9:39 AM EST Temperature 36.3 C (97.4 F) 05/06/2022 6:45 PM EST Respiratory Rate 22 05/06/2022 6:15 PM EST Oxygen Saturation 97% 06/15/2022 9:39 AM EST Inhaled Oxygen Concentration - - Weight 110.7 kg (244 lb) 06/15/2022 9:39 AM EST Height 154.9 cm (5' 1 ) 05/03/2022 12:19 PM EST Body Mass Index 46.1 05/03/2022 12:19 PM EST Plan of Treatment Health Maintenance Due Date Last Done Comments Annual Wellness Exam 1969 Breast Cancer Screening 1984 DTaP/TDaP/Td (1 - Tdap) 1985 Hepatitis B Vaccine (1 of 3 - 19+ 3-dose series) 1985 Pneumococcal Vaccine 50+ (1 of 2 - PCV) 1985 Cervical Cancer Screening 09/18/1987 Pap Smear 09/18/1987 HPV/Pap Cotest 1996 Cologuard 09/18/2011 Colon Cancer Screening 09/18/2011 Colonoscopy 09/18/2011 FIT 09/18/2011 Sigmoidoscopy 09/18/2011 Virtual Colonography 09/18/2011 Zoster (1 of 2) 2016 COVID-19 Vaccine ( - 2023-2 5 season) 2024 Influenza Vaccine (Season Ended) 2025 Meningococcal B Vaccine Aged Out No l onger eligible based on patient's age to complete this topic Goals Goal Patient Goal Type Associated Problems Recent Progress Patient-Stated? Author Maintain a healthy diet, exercise regularly and maintain an ideal body weight General No Ale Reynaga CPhT Stay Tobacco Free Lifestyle No Ale Reynaga CPhT Insurance [facility] [id number] [facility] [id number] Care Teams [employer] Relationship Specialty Start Date End Date Reji Apple [address] [place] [address] [address] [facility] [address] PCP - General Family Medicine 05/06/22
[2024-11-22 16:20] LABS: Hematocrit 44.9 % (37.0-47.0); Hemoglobin 14.3 g/dL (12.2-16.2); Immature Granulocytes % 0.2 %; Mean Corpuscular HGB Conc 31.8 g/dL (31.8-35.4); Mean Corpuscular Hemoglobin 30.2 pg (27.0-31.2); Mean Corpuscular Volume 94.9 fl (81-99); Nucleated Red Blood Cells % 0 %; Platelet Count 250 K/mm3 (142-424); Red Blood Count 4.73 M/mm3 (4.20-5.40); Red Cell Distribution Width-SD 48.1 fL; White Blood Count 6.6 K/mm3 (4.8-10.8)
[2024-11-22 16:54] LABS: Alanine Aminotransferase 18 U/L (12-78); Albumin Level 4.2 g/dl (3.5-5.0); Alkaline Phosphatase 78 U/L (38-126); Anion Gap 11.7 mEq/L (5-15); Aspartate Amino Transferase 22 U/L (14-36); Bilirubin,Direct 0.3 mg/dl (0.0-0.4); Bilirubin,Indirect 0.2 mg/dL (0.0-0.9); Bilirubin,Total 0.5 mg/dl (0.2-1.3); Bilirubin,Unconjugated 0.2 mg/dL (0.0-1.1); Blood Urea Nitrogen 12 mg/dl (7-17); Calcium 9.0 mg/dl (8.4-10.2); Carbon Dioxide 30 mmol/L (22.0-30.0); Chloride 103 mmol/L (98-107); Cholesterol 205 mg/dl (140-200); Creatinine,Serum 1.00 mg/dl (0.52-1.04); Estimated Glomerular Filt Rate 57 ml/min (>60); GFR (African American) 69 ML/MIN (>60); Glucose 89 mg/dl (74-100); HDL Cholesterol 47 mg/dl (40-60); Magnesium 2.1 mg/dl (1.6-2.3); Potassium 4.7 mmoL/L (3.5-5.1); Sodium 140 mmol/L (136-145); Total Protein,Serum 6.5 g/dl (6.3-8.2); Triglycerides 203 mg/dl (30-150)
[2024-11-22 17:10] LABS: Free T4 (Free Thyroxine) 1.03 ng/dl (0.78-2.19)
[2024-11-22 17:23] LABS: Thyroid Stimulating Hormone 2.41 uIU/mL (0.465-4.68)
== END 2024-11-22 23:59 | disposition home or self-care (01) ==
LOC: LAB 15:10
PROVIDERS: PCP Nurse Practitioner; Visit Provider Internal Medicine
DX: R42 Dizziness and giddiness (principal); E89.0 Postprocedural hypothyroidism; E04.1 Nontoxic single thyroid nodule
CPT/HCPCS: 36415; 80048; 80061; 80076; 83735; 84439; 84443; 85025

== ENCOUNTER 2025-04-25 15:55 | Outpatient (CLI) | payer BC, SELFPAY ==
--- NOTE | 2025-04-25 16:00 | MM_ITS ---
PROCEDURE INFORMATION: Exam: MG Bilateral Screening 3D Mammography Exam date and time: 04/25/2025 3:55 PM Age: 59 years old Clinical indication: Screening examination TECHNIQUE: Imaging protocol: Bilateral Screening tomosynthesis and 2D mammography including computer-aided detection (CAD) when performed. COMPARISON: 1. MG MM DIG SCREENING MAMM BI W/CAD 04/23/2024 1:27 PM 2. MG MM DIG SCREENING MAMM BI W/CAD 04/07/2023 3:51 PM FINDINGS: MAMMOGRAPHY: Breast composition: There are scattered areas of fibroglandular density. Mass: None. Architectural distortion: None. Calcifications: No suspicious calcifications. Asymmetric density: None. Skin thickening: None. Axillary adenopathy: None. IMPRESSION: No mammographic evidence of malignancy. Annual screening is recommended unless otherwise clinically indicated. ASSESSMENT: BI-RADS Category 1: Negative.
== END 2025-04-25 23:59 | disposition home or self-care (01) ==
LOC: RAD 15:56
PROVIDERS: PCP Nurse Practitioner; Visit Provider Nurse Practitioner
DX: Z12.31 Encounter for screening mammogram for malignant neoplasm of breast (principal); R92.323 Mammographic fibroglandular density, bilateral breasts
CPT/HCPCS: 77063; 77067

== ENCOUNTER 2025-05-03 09:28 | Day surgery (SDC) | payer BC, SELFPAY ==
--- NOTE | 2025-05-03 09:32 | P.HP_ITS ---
HPI HPI HPI: Patient presents for follow-up colonoscopy. She is a 59-year-old from [facility]. She has a family history of colon cancer in her maternal grandmother and maternal uncle. She has had 4 prior colonoscopies. Previously she states that about 7 or 8 polyps have been removed of each colonoscopy. She had previously undergone colonoscopy about every 3 years. I performed colonoscopy on 04/06/2022 at which time she was found to have sigmoid diverticulosis, fair colonic preparation, and numerous polyps, approximately 23, mostly diminutive. Pathology actually revealed all of these to be hyperplastic but no adenomatous component. At that time since she had a suboptimal prep and had a family hi story of colon cancer with personal history of numerous polyps recommended colonoscopy was for 3 years with 2-day prep. [facility] Disclaimer: The information contained in this section may have been updated after the patient was seen, as this information can be updated by other users. Medical History (Updated 05/03/25 @ 10:54 by Jose Daniel MD) History of colon polyps Retracted tympanic membrane Popping of right ear Ear pain, right Fluid level behind tympanic membrane of both ears (HFpEF) heart failure with preserved ejection fraction Chest pain IFG (impaired fasting glucose) Left leg swelling Screening for malignant neoplasm of breast Hypothyroidism (acquired) SVT (supraventricular tachycardia) Cough Personal history of smoking Syncopal episodes Transient speech disturbance Paresthesia of bilateral legs Allergic rhinitis Allergic conjunctivitis and rhinitis Thyroid nodule Prolapse of female pelvic organs History of wrist fracture History of thyroid disease History of depression History of anxiety Family history of GERD History of airborne allergies History of mitral valve prolapse Surgical History History of partial thyroidectomy History of colonoscopy History of partial thyroidectomy History of breast biopsy History of hysterectomy Family History Other Family history of cancer Family history of diabetes mellitus type I Family history of hypertension Social History (Updated 05/03/25 @ 09:56 by Zoë Rodriguez RN) Smoking Status: Current every day smoker tobacco type: cigarettes packs per day: 1 alcohol intake: never substance use type: denies use current occupational status: employed Travel in the last 8 weeks?: None household members: family housing: house current occupation: [employer] current occupational exposures/hazards: No caffeine: Yes Other Medical History Have you received the Flu Vaccine for this season: No Have you received the Pneumonia Vaccine: No Meds Home Medications and Allergies Home Medications ?Medication ?Instructions ?Recorded ?Confirmed ?Type fluticasone propionate 50 1 spray intranasal DAILY #16 grams 01/13/24 05/03/25 Rx mcg/actuation nasal spray,suspension (Flonase Allergy Relief) budesonide 160 mcg-glycopyr 9 2 inh inhalation BID #10 .7 grams 09/04/24 05/03/25 Rx mcg-formot 4.8 mcg/actuation HFA inhaler (Breztri Aerosphere) diltiazem HCl 120 mg 120 mg PO DAILY #90 caps 05/03/25 Rx capsule,extended release 24 hr azelastine 137 mcg (0.1 %) nasal 2 spray intranasal BI D #30 mL 12/13/24 05/03/25 Rx spray sodium sul 1.479 gram-potas ch See Rx Instructions PO PER PKG DIR 04/11/25 05/03/25 Rx 0.188 gram-magnes sul 0.225 gram #24 tabs tablet (Sutab) levocetirizine 5 mg tablet See Rx Instructions .Route 04/23/25 05/03/25 Rx .COMPLEX #90 tabs montelukast 10 mg tablet See Rx Instructions .Route 1 06/24/24 05/03/25 Rx .COMPLEX #90 tabs New Prescriptions to Start Prescriptions: Allergies Allergy/AdvReac Type Severity Reaction Status Date / Time nadolol (From CORGARD) Allergy Intermediate I-HIVES Verified 05/03/25 09:49 silver Allergy Intermediate Rash Verified 05/03/25 09:49 empagliflozin (From Allergy Mild Chest Pain Verified 05/03/25 09:49 Jardiance) Exam Constitutional Constitutional: no acute distress *Routine HEENT Exam Head: Present normocephalic Eye: Present EOMI and PERRL ENT: Present mucous membranes moist *Routine Neck Exam Neck: Present supple; Absent lymphadenopathy *Routine Respiratory Exam Respiratory: Present CTA bilaterally *Routine Cardiovascular Exam Cardiovascular: Present RRR *Routine Abdominal Exam Abdominal: Present soft and normoactive bowel sounds; Absent tenderness *Routine Rectal Exam Rectal:: deferred *Routine Genitalia Exam Genitalia:: deferred *Routine Extremities Exam Extremities: Absent cyanosis, clubbing or edema *Routine Skin Exam Skin: Present warm; Absent rash *Routine Neurological Exam Neurological: Present alert and oriented X3 Assessment and Plan *Assessment and plan (1) Family history of colon cancer: Status: Acute Category: Medical Code(s): Z80.0 - Family history of malignant neoplasm of digestive organs Plan Colonoscopy
[2025-05-03 09:43] VITALS: BMI 49.1
[2025-05-03 09:44] VITALS: BP 166/94; PULSE 90; RESP 18; TEMP 36.3; O2SAT 95
[2025-05-03] MEDS: LACTATED RINGERS 1000ML 1,000 ML 50 ML IV (10:03)
--- NOTE | 2025-05-03 10:13 | EXP.ANES.CKL ---
[facility] Disclaimer: The information contained in this section may have been updated after the patient was seen, as this information can be updated by other users. Medical History History of colon polyps Family history of colon cancer Retracted tympanic membrane Popping of right ear and cracking sound Ear pain, right Fluid level behind tympanic membrane of both ears (HFpEF) heart failure with preserved ejection fraction Chest pain IFG (impaired fasting glucose) Left leg swelling Screening for malignant neoplasm of breast Hypothyroidism (acquired) SVT (supraventricular tachycardia) Cough Personal history of smoking Syncopal episodes Transient speech disturbance Paresthesia of bilateral legs Allergic rhinitis Allergic conjunctivitis and rhinitis Thyroid nodule Prolapse of female pelvic organs History of wrist fracture History of thyroid disease History of depression History of anxiety Family history of GERD History of airborne allergies History of mitral valve prolapse Surgical History History of partial thyroidectomy History of colonoscopy History of partial thyroidectomy History of breast biopsy History of hysterectomy Family History Other Family history of cancer Family history of diabetes mellitus type I Family history of hypertension Social History (Updated 05/03/25 @ 09:56 by Zoë Rodriguez RN) Smoking Status: Current every day smoker tobacco type: cigarettes packs per day: 1 alcohol intake: never substance use type: denies use current occupational status: employed Travel in the last 8 weeks?: None household members: family housing: house current occupation: [employer] current occupational exposures/hazards: No caffeine: Yes [facility] Anesthesia Checklist Patient Identification Patient Identification: Arm Band Structural Data Admitted From: Home Planned Operative Procedure/s: Colonoscopy Consent for Planned Operative Procedure(s) Verified: Yes Verified Documents: Surgical Consent and History and Physical NPO Status Verified Time NPO: 00:00 Additional verifications Anesthesia Reactions: No Hx Blood Transfusions: No Blood Transfusion Reaction: No Airway Assessment Mallampati Score:: Class II C-Spine Mobility Assessed: Yes TMJ Mobility Assessed: Yes Dentition: Good Dentition Neurological Assessment Level of Consciousness: Awake, Alert and Appropriate Anesthesia Plan Anesthesia Risk discussed: Yes Anesthesia Plan: Verified ASA Class: III Anesthesia Type: MAC
[2025-05-03 10:55] VITALS: BP 116/74; PULSE 83; RESP 14; TEMP 36.1; O2SAT 91
--- NOTE | 2025-05-03 10:58 | P.PCN_ITS ---
Procedure: Date: 05/03/25 Patient Date of :: 1965 Procedure Performed:: Total colonoscopy to terminal ileum with multiple polypectomy Indications:: Patient presents for follow-up colonoscopy. She is a 59-year-old from [facility]. She has a family history of colon cancer in her maternal grandmother and maternal uncle. She has had 4 prior colonoscopies. Previously she states that about 7 or 8 polyps have been removed of each colonoscopy. She had previously undergone colonoscopy about every 3 years. I performed colonoscopy on 04/06/2022 at which time she was found to have sigmoid diverticulosis, fair colonic preparation, and numerous polyps, approximately 23, mostly diminutive. Pathology actually revealed all of these to be hyperplastic but no adenomatous component. At that time since she had a suboptimal prep and had a family history of colon cancer with personal history of numerous polyps recommended colonoscopy was for 3 years with 2-day prep. She underwent prep with Sutab's and did quite well. Performing Provider:: Jose Daniel MD Referring Provider:: Belia White Sedation:: MAC sedation Procedure:: Patient history was obtained and appropriate physical examination was performed. Patient's medications and allergies were reviewed. Informed consent was obtained after explaining the benefits, alternatives, and risks of the procedure including, but not limited to, bleeding, perforation, missed lesions, and adverse reaction to anesthesia medications. Patient was transported to endoscopy procedure room. Patient was connected to monitoring devices. Throughout the procedure the patient's blood pressure, pulse, and oxygen saturations were monitored continuously. Patient identification and planned procedure were verified by the staff. Patient was positioned in lateral decubitus position. Digital anorectal exam was performed. Variable stiffness Olympus colonoscope was inserted and advanced under direct visualization to the cecum. Adequacy of the colonic preparation was noted. The colonoscope was advanced a short distance into the terminal ileum. The colonoscope was then slowly withdrawn while carefully examining the color, texture, anatomy, and integrity of the mucosoa circumferentially. Within the rectum retroflexion was performed. Colonoscope was then withdrawn. Impression: Colonic preparation was good. Within the cecum adjacent to the appendiceal orifice there was a very tiny diminutive possible adenomatous polyp removed with cold biopsy. Near the splenic flexure there was a small diminutive polyp removed with cold snare. In the rectosigmoid region there was a hyperplastic appearing polyp removed with cold snare. Adjacent to this there was a possible tiny adenomatous polyp removed with biopsy forceps. In the rectosigmoid and rectal area there were multiple hyperplastic appearing polyps. Larger of these were removed (2 with snare and 2 with biopsy forceps). . Findings:: Polyps as noted, total of 8 polyps removed. Most of these appeared hyperplastic. Possible adenomatous polyp in the cecum, splenic flexure, and one of the rectosigmoid. Recommendations:: Follow-up colonoscopy pending pathology. Likely 3 years with family history. Complications:: None immediately apparent Estimated blood obtained (mL): 1 Colonoscopy Component Colonoscopy Component Was a colonoscopy performed during today's procedure?: Yes Recommended follow up colonoscopy of at least 10 years?: No If no, follow up colonoscopy recommended in ___ years?: 3 Reason for not recommending >/= 10 yr follow-up interval?: See above
[2025-05-03 11:05] VITALS: BP 124/79; PULSE 84; RESP 16; TEMP 36.2; O2SAT 93
[2025-05-03 11:15] VITALS: BP 127/73; PULSE 75; RESP 16; TEMP 36.1; O2SAT 95
[2025-05-03 11:25] VITALS: BP 134/70; PULSE 70; RESP 18; TEMP 36.1; O2SAT 97
== END 2025-05-03 11:40 | disposition home or self-care (01) ==
PROVIDERS: PCP Nurse Practitioner; Visit Provider Surgery
PROC: 0DJD8ZZ Inspection of Lower Intestinal Tract, Via Natural or Artificial Opening Endoscopic (ICD-10-PCS; CPT 45380; principal; 2025-05-03 10:30)
DX: D12.3 Benign neoplasm of transverse colon (principal); K63.5 Polyp of colon; E03.9 Hypothyroidism, unspecified; Z90.49 Acquired absence of other specified parts of digestive tract; Z90.710 Acquired absence of both cervix and uterus; F17.210 Nicotine dependence, cigarettes, uncomplicated; Z88.8 Allergy status to other drugs, medicaments and biological substances; Z91.048 Other nonmedicinal substance allergy status; Z79.899 Other long term (current) drug therapy; Z80.0 Family history of malignant neoplasm of digestive organs
CPT/HCPCS: 45380; 45385; J2003; J2704; J7120